=== PATIENT | female | born 1940 | race Caucasian/White ===

== ENCOUNTER → 2019-03-28 | Outpatient (CLI) | payer MEDICARE ==
--- NOTE | 2019-04-01 09:36 | MM ---
Reason for exam: screening (asymptomatic). Last mammogram was performed 9 years ago. History: Patient is postmenopausal. Family history of breast cancer in mother. Physical Findings: A clinical breast exam by your physician is recommended on an annual basis and results should be correlated with mammographic findings. MG 3D Screening Mammo W/Cad Bilateral CC and MLO view(s) were taken. XCCL view(s) were taken of the right breast. Prior study comparison: March 18, 2010, bilateral digital screening mammogram. December 31, 2007, bilateral digital screening mammogram. The breast tissue is heterogeneously dense. This may lower the sensitivity of mammography. Stable benign calcifications. There is no discrete abnormality. No significant changes when compared with prior studies. ASSESSMENT: Benign, BI-RAD 2 RECOMMENDATION: Routine screening mammogram of both breasts in 1 year.
== END | disposition home or self-care (01) ==
LOC: RADMAMWWP 09:44
PROVIDERS: ATTEND Family Medicine
DX: Z12.31 Encounter for screening mammogram for malignant neoplasm of breast (principal)
CPT/HCPCS: 77063; 77067

== ENCOUNTER → 2021-02-05 | Outpatient (CLI) | payer MEDICARE ==
--- NOTE | 2021-02-06 12:24 | ECHOF ---
Referral Reason:I34.0 Mitral valve regurgitation MEASUREMENTS -------- HEIGHT: 157.5 cm WEIGHT: 51.7 kg BP: RVIDd: 3.2 cm (< 3.3) IVSd: 0.9 cm (0.6 - 1.1) LVIDd: 3.8 cm (3.9 - 5.3) LVPWd: 1.0 cm (0.6 - 1.1) IVSs: 1.2 cm LVIDs: 2.8 cm LVPWs: 1.1 cm LAESV Index (A-L): 20.12 ml/m Ao Diam: 3.3 cm (2.0 - 3.7) MV EXCURSION: 11.236 mm (> 18.000) MV EF SLOPE: 217 mm/s (70 - 150) EPSS: 0.4 cm MV E Gilbert: 0.53 m/s MV DecT: 294 ms MV A Gilbert: 0.83 m/s MV E/A Ratio: 0.64 RAP: 5.00 mmHg RVSP: 29.66 mmHg FINDINGS -------- Sinus rhythm. This was a technically good study. LV size, wall thickness and systolic function are normal, with an EF greater than 55%. The left eda tricular size is normal. The right ventricle is normal in size. Normal LA size by volume 22+/-6 ml/m2. The right atrial size is normal. There is mild aortic valve sclerosis. There is no evidence of aortic regurgitation. Mild mitral regurgitation is present. Mild tricuspid regurgitation present. Right ventricular systolic pressure is normal at < 35 mmHg. There is no pulmonic regurgitation present. There is no pericardial effusion. CONCLUSIONS -------- 1. LV size, wall thickness and systolic function are normal, with an EF greater than 55%. 2. The left ventricular size is normal. 3. The right ventricle is normal in size. 4. Normal LA size by volume 22+/-6 ml/m2. 5. The right atrial size is normal. 6. There is mild aortic valve sclerosis. 7. Mild mitral regurgitation is present. 8. Mild tricuspid regurgitation present. 9. There is no pericardial effusion. TEACHING ASSOCIATE: Rosa Carrasco RDCS
== END | disposition home or self-care (01) ==
LOC: RADECHMAIN 15:43
PROVIDERS: ATTEND Family Medicine
DX: I08.3 Combined rheumatic disorders of mitral, aortic and tricuspid valves (principal)
CPT/HCPCS: 93306

== ENCOUNTER → 2021-02-19 | Outpatient (CLI) | payer MEDICARE ==
[~2021-02-19] MED LIST: DENOSUMAB 60 MG/ML 1 ML SYRINGE SQ ONE
[2021-02-19 13:32] VITALS: BP 156/72; PULSE 94; RESP 18; TEMP 97.9
== END ==
LOC: PROCWHC3 13:13
PROVIDERS: ATTEND Family Medicine
DX: M81.0 Age-related osteoporosis without current pathological fracture (principal); Z88.2 Allergy status to sulfonamides; Z91.040 Latex allergy status; Z88.1 Allergy status to other antibiotic agents; Z88.8 Allergy status to other drugs, medicaments and biological substances; Z91.048 Other nonmedicinal substance allergy status
CPT/HCPCS: 96372; J0897

== ENCOUNTER → 2021-08-24 | Outpatient (CLI) | payer MEDICARE ==
[~2021-08-24] MED LIST changes: +DENOSUMAB 60 MG/ML 1 ML SYRINGE SQ NR; -DENOSUMAB 60 MG/ML 1 ML SYRINGE SQ ONE
[2021-08-24 13:09] VITALS: BP 101/69; PULSE 71; RESP 16; TEMP 97.7
== END ==
LOC: PROCWHC3 12:55
PROVIDERS: ATTEND Family Medicine
DX: M81.0 Age-related osteoporosis without current pathological fracture (principal)
CPT/HCPCS: 96372; J0897

== ENCOUNTER 2022-07-25 09:59 | Day surgery (SDC) | payer MEDICARE ==
[~2022-07-25 09:59] MED LIST changes: +ALPRAZolam 0.25 MG TAB PO PRN; +ALPRAZolam 0.5 MG TAB PO PRN; +ASPIRIN 325 MG TAB PO PRN; -DENOSUMAB 60 MG/ML 1 ML SYRINGE SQ NR; +HEPARIN SODIUM,PORCINE 10,000 UNIT in SODIUM CHLORIDE 0.9% 1,000 ML IRRIGATION PRN; +HEPARIN SODIUM,PORCINE 2,500 UNIT in SODIUM CHLORIDE 0.9% 250 ML IRRIGATION PRN; +SODIUM CHLORIDE 0.9% 1,000 ML in EMPTY BAG 1 BAG IV ONE; +ZOLPIDEM 5 MG TAB PO PRN
[2022-07-25] MEDS ORDERED: SODIUM CHLORIDE 0.9% 1,000 ML IV ONE (10:12)
[2022-07-25 10:30] VITALS: RESP 16; TEMP 98.6
[2022-07-25 10:47] LABS: Basophils % (A) 0 %; Eosinophils # (A) 0.2 k/uL (0-0.7); Eosinophils % (A) 2 %; HCT 46.2 % (34.0-46.0); HGB 15.2 gm/dL (11.4-16.0); Lymphocytes # (A) 1.6 k/uL (1.0-4.8); Lymphocytes % (A) 21 %; MCH 28.7 pg (25.0-35.0); MCHC 32.9 g/dL (31.0-37.0); MCV 87.2 fL (80.0-100.0); Mean Platelet Volume 8.9; Monocytes # (A) 0.5 k/uL (0-1.0); Monocytes % (A) 7 %; Neutrophils # (A) 5.1 k/uL (1.3-7.7); Neutrophils % (A) 68 %; Platelet Count 225 k/uL (150-450); WBC 7.5 k/uL (3.8-10.6)
[2022-07-25 10:59] LABS: African American GFR (CKD) >90 (>60 ml/min/1.73 sqM); Anion Gap 6 mmol/L; Blood Urea Nitrogen 27 mg/dL (7-17); Calcium 9.4 mg/dL (8.4-10.2); Carbon Dioxide 28 mmol/L (22-30); Chloride 102 mmol/L (98-107); Glucose 110 mg/dL (74-99); Non-African American GFR(CKD) 85 (>60 ml/min/1.73 sqM); Sodium 136 mmol/L (137-145)
[2022-07-25 11:21] LABS: Potassium 4.6 mmol/L (3.5-5.1)
[2022-07-25] MEDS ORDERED: MIDAZOLAM 2 MG/2 ML VIAL IV ONE (12:22)
[2022-07-25] MEDS ORDERED: LIDOCAINE 1% INJ 10MG/ML (5 ML VIAL-PF) SQ ONE (12:22)
[2022-07-25] MEDS ORDERED: fentaNYL (PF) 50 MCG/ML 2 ML AMP IV ONE (12:22)
[2022-07-25] MEDS ORDERED: VERAPAMIL SYRINGE (5 MG/10 ML) INTRAARTER ONE (12:24)
--- NOTE | 2022-07-25 13:12 | P.PCN ---
Description of Procedure: PROCEDURES PERFORMED: Abdominal angiography with bilateral runoff INDICATION: PAD, claudication CONSENT:I have discussed the risks, benefits and alternative therapies for the above-mentioned procedure and for both sedation/analgesia as well as necessary blood product administration, if indicated, as they pertain to this patient. T he patient has indicated understanding and acceptance of the risks and procedures discussed. PROCEDURE: After the risks, benefits and alternatives of the above mentioned procedure explained in detail with the patient, informed consent was obtained. Patient was taken to the catheterization lab and prepped and draped in usual fashion. 1% lidocaine was used to anesthetize the right radial area. A 5- [place] sheath was placed in the right radial artery using modified Seldinger technique. A 5-[place]ib[place] pigtail catheter was inserted to the abdominal aorta and DSA imaging was obtained. Patient tolerated the diagnostic portion well. A TR band was placed with hemostasis achieved. The patient tolerated the procedure well. Patient was transported back to the post catheterization holding area in stable condition. Conscious Sedation: Patient was monitored under the direct supervision of vision of myself for conscious sedation using Versed and fentanyl for a total duration of 27 minutes HEMODYNAMICS: Aorta: 204/89 Pullback across left iliac 90 mmHg Pullback across right iliac 40 mmHg Abdominal aorta: The abdominal aorta has diffuse calcifcation. There is a 60% stenosis of the distal aorta past the renal arteries. There is no significant gradient with pullback across this lesion. Renal arteries heart patent. There is no significant dissection or aneurysm. Right lower extremity: Right common iliac artery: There is diffuse 30-40% stenosis. Right external iliac artery: There is 70% proximal external iliac stenosis. Right internal iliac artery: There is no significant stenosis. Right common femoral artery: There is no significant stenosis. Right profunda: There is no significant stenosis. Right SFA: There is 100% proximal SFA stenosis Right popliteal artery: There is no significant stenosis. Right tibioperoneal trunk: There is no significant stenosis. Right anterior tibial artery: There is no significant stenosis. Right porterior tibial artery: There is no significant stenosis. Right peroneal artery: There is no significant stenosis. Left lower extremity: Left common iliac artery: There is no significant stenosis. Left external iliac artery: There is 80% external iliac stenosis. Left internal iliac artery: There is no significant stenosis. Left common femoral artery: There is no significant stenosis. Left profunda: There is no significant stenosis. Left SFA: There is mild 30-40% stenosis. Left popliteal artery: There is no significant stenosis. Left tibioperoneal trunk: There is no significant stenosis. Left anterior tibial artery: There is no significant stenosis. Left porterior tibial artery: There is no significant stenosis. Left peroneal artery: There is no significant stenosis. FINAL IMPRESSION: 1. Peripheral arterial disease as described above including distal aortic 60% stenosis, right external iliac 70% stenosis, left external iliac 80% stenosis, right SFA 100% stenosis. 2. Pressure gradient of 90 mmHg pullback across the left iliac artery and 40 mmHg with pullback across the right iliac artery PLAN: 1. Aggressive risk factor modification per most recent ACC/AHA guidelines. 2. Staged intervention if having significant claudication.
--- NOTE | 2022-07-25 14:11 | IR ---
EXAMINATION TYPE: IR angio abdominal w runoff DATE OF EXAM: 07/25/2022 COMPARISON: NONE HISTORY: Fluoroscopy time. Fluoroscopy was provided to the referring clinician.
[2022-07-25 16:46] VITALS: BP 123/69; PULSE 69
== END 2022-07-25 16:42 | disposition home or self-care (01) ==
LOC: CATHCVL 09:59
PROVIDERS: ATTEND Internal Medicine
DX: I70.213 Atherosclerosis of native arteries of extremities with intermittent claudication, bilateral legs (principal); I70.0 Atherosclerosis of aorta; I25.10 Atherosclerotic heart disease of native coronary artery without angina pectoris; Z87.891 Personal history of nicotine dependence; E78.5 Hyperlipidemia, unspecified; Z79.899 Other long term (current) drug therapy; Z79.82 Long term (current) use of aspirin
CPT/HCPCS: 36245; 99152; 99153; 75625; 75716; 80048; 85025; C1769 ×3; C1894 ×2; J2250; J2001; J3010; 36200

== ENCOUNTER → 2022-09-06 | Outpatient (CLI) | payer MEDICARE ==
[2022-09-07 02:23] LABS: African American GFR (CKD) 98.2 (60.0-200.0); Anion Gap 11.9 mmol/L (10.00-18.00); Blood Urea Nitrogen 17.7 mg/dL (9.0-27.0); Non-African American GFR(CKD) 84.7 (60.0-200.0); Potassium 3.8 mmol/L (3.5-5.5)
[2022-09-07 02:26] LABS: HCT 50.4 % (37.2-46.3); HGB 15.4 g/dL (12.0-15.0); MCH 27.1 pg (27.0-32.0); MCHC 30.6 g/dL (32.0-37.0); MCV 88.6 fL (80.0-97.0); Mean Platelet Volume 11.9 fL (9.5-12.2); NRBC Per 100 WBC 0 /100 WBCS (0.0-0.0); Platelet Count 288 X 10*3/uL (140-440); RBC 5.69 X 10*6/uL (4.10-5.20); RDW 13.1 % (11.5-14.5); WBC 9.49 X 10*3/uL (4.50-10.00)
== END | disposition home or self-care (01) ==
LOC: LABPAT 12:09
PROVIDERS: ATTEND Internal Medicine
DX: Z01.812 Encounter for preprocedural laboratory examination (principal); I70.213 Atherosclerosis of native arteries of extremities with intermittent claudication, bilateral legs
CPT/HCPCS: 80051; 82565; 84520; 85027

== ENCOUNTER 2022-09-14 07:38 | Day surgery (SDC) | payer MEDICARE ==
[~2022-09-14 07:38] MED LIST changes: -ALPRAZolam 0.5 MG TAB PO PRN; -ASPIRIN 325 MG TAB PO PRN; -HEPARIN SODIUM,PORCINE 10,000 UNIT in SODIUM CHLORIDE 0.9% 1,000 ML IRRIGATION PRN; -HEPARIN SODIUM,PORCINE 2,500 UNIT in SODIUM CHLORIDE 0.9% 250 ML IRRIGATION PRN; -ZOLPIDEM 5 MG TAB PO PRN
[2022-09-14] MEDS ORDERED: fentaNYL (PF) 50 MCG/ML 2 ML AMP ONE (09:37)
[2022-09-14] MEDS ORDERED: HEPARIN SODIUM 1,000 UN/ML (10ML VL) ONE (09:38)
[2022-09-14] MEDS ORDERED: MIDAZOLAM 2 MG/2 ML VIAL IV ONE (09:47)
[2022-09-14] MEDS ORDERED: LIDOCAINE 1% INJ 10MG/ML (20 ML MDV) SQ ONE (09:47)
[2022-09-14] MEDS ORDERED: fentaNYL (PF) 50 MCG/ML 2 ML AMP IV ONE (09:47)
[2022-09-14] MEDS ORDERED: HEPARIN SODIUM 1,000 UN/ML (10ML VL) IV ONE (09:55)
[2022-09-14] MEDS ORDERED: IOPAMIDOL-370 100ML BTL INJ ONE (11:04)
[2022-09-14] MEDS ORDERED: IOPAMIDOL-250 100ML BTL INTRAARTER ONE (11:09)
--- NOTE | 2022-09-14 11:55 | IR ---
EXAMINATION TYPE: IR stent intravas non coronary DATE OF EXAM: 09/14/2022 COMPARISON: NONE HISTORY: Fluoroscopy time. Fluoroscopy was provided to the referring clinician.
[2022-09-14] MEDS ORDERED: ALBUTEROL NEBULIZED 2.5 MG/3 ML INHALATION PRN (11:58)
[2022-09-14] MEDS ORDERED: NALOXONE 0.4 MG/ML 1 ML VIAL IVP PRN (11:59)
[2022-09-14] MEDS ORDERED: ATORVASTATIN 40 MG TAB PO SCH (21:00)
[2022-09-15 00:43] VITALS: RESP 16
[2022-09-15 06:45] LABS: Basophils % (A) 0 %; Eosinophils # (A) 0.3 k/uL (0-0.7); Eosinophils % (A) 3 %; HCT 39.5 % (34.0-46.0); Hypochromasia Slight; Lymphocytes # (A) 1.5 k/uL (1.0-4.8); Lymphocytes % (A) 15 %; MCH 26.6 pg (25.0-35.0); MCV 85.9 fL (80.0-100.0); Mean Platelet Volume 8.8; Monocytes # (A) 0.8 k/uL (0-1.0); Monocytes % (A) 8 %; Neutrophils # (A) 7.1 k/uL (1.3-7.7); Neutrophils % (A) 71 %; Platelet Count 258 k/uL (150-450); RDW 12.8 % (11.5-15.5)
[2022-09-15 06:49] LABS: HGB 12.2 gm/dL (11.4-16.0)
[2022-09-15 06:53] LABS: African American GFR (CKD) >90 (>60 ml/min/1.73 sqM); Anion Gap 7 mmol/L; Blood Urea Nitrogen 20 mg/dL (7-17); Calcium 8.2 mg/dL (8.4-10.2); Carbon Dioxide 26 mmol/L (22-30); Chloride 102 mmol/L (98-107); Glucose 113 mg/dL (74-99); Non-African American GFR(CKD) 88 (>60 ml/min/1.73 sqM); Potassium 3.9 mmol/L (3.5-5.1); Sodium 135 mmol/L (137-145)
[2022-09-15 07:58] VITALS: TEMP 97.8
[2022-09-15] MEDS ORDERED: SYMBICORT 80-4.5 MCG INHALER INHALATION SCH (08:00)
[2022-09-15] MEDS ORDERED: ISOSORBIDE MONONITRATE ER 30 MG TAB.ER.24H PO SCH (09:00)
[2022-09-15] MEDS ORDERED: ASPIRIN 81 MG PO SCH (09:00)
[2022-09-15] MEDS ORDERED: CLOPIDOGREL 75 MG TAB PO SCH (09:00)
[2022-09-15] MEDS: IPRATROPIUM 0.5 MG/2.5 ML NEBU INHALATION SCH ×2 (09:42→12:14)
[2022-09-15 11:49] VITALS: PULSE 75
[2022-09-15] MEDS ORDERED: MAGNESIUM HYDROXIDE 2,400 MG/10 ML CUP PO PRN (11:57)
[2022-09-15] MEDS ORDERED: bisacodyL 10 MG SUPP RECTAL SCH (12:00)
[2022-09-15 13:17] VITALS: BMI 20.7
[2022-09-15 15:50] VITALS: BP 161/92
--- NOTE | 2022-09-15 22:07 | P.PCN ---
Description of Procedure: PROCEDURES PERFORMED: FAC ENGINEER and FREDO of proximal to distal right SFA with overlapping 6.0 x 140, 6.0 x 100, 6.0 x 80, 6.0 x 40mm Zilver FREDO, IVUS SFA INDICATION: Lifestyle limiting claudication, known PAD CONSENT:I have discussed the risks, benefits and alternative therapies for the above-mentioned procedure and for both sedation/analgesia as well as necessary blood product administration, if indicated, as they pertain to this patient. The patient has indicated understanding and acceptance of the risks and procedures discussed. PROCEDURE: After the risks, benefits and alternatives of the above mentioned procedure explained in detail with the patient, informed consent was obtained. Patient was taken to the catheterization lab and prepped and draped in usual fashion. 1% lidocaine was used to anesthetize the left femoral area. A 6- [place] sheath was placed in the left femoral artery using modified Seldinger technique. A 5-[place]aguayan rim catheter with a 0.035 stiff Glidewire was advanced into the contralateral SFA. Over the guidewire, a 6-[place] destination sheath was placed. Diagnostic imagings were performed. Attempts were made at keeping the wire intraluminal however unsuccessful crossing. Therefore a small J was made with the Glidewire and advanced with a glide catheter and noted to be in dissection. Multiple attempts were made at reentry however required reentry mildly more distally at the proximal popliteal artery. A microcatheter was advanced and verified it was intraluminal. Therefore balloon angioplasty was performed with a 4.0 balloon. Next intravascular ultrasound was performed which showed dissection flap to the proximal popliteal area. Therefore decision was made to perform stenting. Overlapping 6.0 x 140 mm, 6.0 x 100 mm, 6.0 x 80 mm and 6.0 x 40 mm Zilver FREDO were placed. The stents were postdilated with a 6.0 balloon. Pre-intervention there is 100% stenosis with no antegrade flow and post intervention there was less than 10% stenosis with uninhibited antegrade flow. The sheath was exchanged for a short 6Fr sheath and left in place for manual pull. The patient tolerated the procedure well. Patient was transported back to the post catheterization holding area in stable condition. Conscious Sedation: Patient was monitored under the direct supervision of vision of myself for conscious sedation using Versed and fentanyl for a total duration of 79 minutes HEMODYNAMICS: Ao: 133/71 Right lower extremity: Right common iliac artery: Not imaged Right external iliac artery: Not imaged Right internal iliac artery: Not imaged Right common femoral artery: There is no significant stenosis. Right profunda: There is no significant stenosis. Right SFA: There is long 100% right SFA stenosis. Right popliteal artery: There is no significant stenosis. Right tibioperoneal trunk: There is no significant stenosis. Right anterior tibial artery: There is no significant stenosis. Right posterior tibial artery: There is no significant stenosis. Right peroneal artery: There is no significant stenosis. FINAL IMPRESSION: 1. Peripheral arterial disease as described above including 100% right SFA stenosis. 2. S/p FAC ENGINEER and FREDO of proximal to distal right SFA with overlapping 6.0 x 140, 6.0 x 100, 6.0 x 80, 6.0 x 40mm Zilver FREDO PLAN: 1. Aggressive risk factor modification per most recent ACC/AHA guidelines. 2. Continue aspirin and Plavix for 6 months.
--- NOTE | 2022-09-15 22:10 | P.DS ---
Providers Attending physician: Willy Hatch DO Primary care physician: Viral Byrd [facility] Course: Patient has a history of PAD with prior diagnostic imaging showing significant right SFA 100% occluded as well as concern of inflow disease with pressure gradient across bilateral common iliac arteries. Patient underwent right SFA angioplasty and stenting 09/14 from a left femoral approach. Patient did well however has had continued right knee pain similar to prior to angioplasty. She was monitored overnight and admitted to some continued constipation which she has been dealing with at home. She appeared stable for discharge home 09/15 on aspirin and Plavix for the next 6 months. Bilateral iliac disease may be considered if continues with claudication. Plan - Discharge Summary Discharge Rx Participant: No New Discharge Prescriptions: No Action Atorvastatin [Lipitor] 40 mg PO HS Albuterol Sulfate [Proair Digihaler] 1 puff INHALATION Q6H PRN PRN Reason: Wheezing Isosorbide Mononitrate ER [Imdur] 30 mg PO DAILY Aspirin 81 mg PO DAILY Fluticasone/Umeclidin/Vilanter [Trelegy Ellipta 100-62.5-25] 1 puff INHALATION DAILY Clopidogrel [Plavix] 75 mg PO DAILY Discharge Medication List Atorvastatin [Lipitor] 40 mg PO HS 07/20/22 [History] Fluticasone/Umeclidin/Vilanter [Trelegy Ellipta 100-62.5-25] 1 puff INHALATION DAILY 07/20/22 [History] Albuterol Sulfate [Proair Digihaler] 1 puff INHALATION Q6H PRN 09/13/22 [History] Aspirin 81 mg PO DAILY 09/13/22 [History] Clopidogrel [Plavix] 75 mg PO DAILY 09/13/22 [History] Isosorbide Mononitrate ER [Imdur] 30 mg PO DAILY 09/13/22 [History] Follow up Appointment(s)/Referral(s): Willy Hatch DO [STAFF PHYSICIAN] - 09/28/22 9:45 am () Patient Instructions/Handouts: Peripheral Vascular Disease (ED), Peripheral Artery Disease (ED), Moderate Sedation (DC), Peripheral Vascular Stent Placement (DC) Activity/Diet/Wound Care/Special Instructions: *NO LIFTING, PUSHING, OR PULLING ANYTHING OVER 5 POUNDS FOR 5 DAYS *NO DRIVING FOR 3 DAYS *YOU CAN SHOWER TOMORROW BUT DO NOT SUBMERSE YOUR PUNCTURE SITE IN WATER FOR A FEW DAYS TO PREVENT INFECTION - SO NO TUB BATHS, POOLS, HOT TUBS, DISHES...ETC *ANY SIGNS OF BLEEDING (HARDNESS, SWELLING, OR EXCESSIVE BRUISING) HOLD DIRECT PRESSURE ON YOUR PUNCTURE SITE AND COME TO THE NEAREST EMERGENCY ROOM TO GET YOUR PUNCTURE SITE LOOKED AT - DO NOT DRIVE YOURSELF! EITHER CALL EMS OR HAVE SOMEONE DRIVE YOU! Discharge Disposition: HOME SELF-CARE
== END 2022-09-15 16:04 | disposition home or self-care (01) ==
LOC: CATHCVL 07:38 → 3SCARD 11:06 → CATHCVL 09-15 16:04
PROVIDERS: ATTEND Internal Medicine
DX: I70.211 Atherosclerosis of native arteries of extremities with intermittent claudication, right leg (principal); I10 Essential (primary) hypertension; I25.10 Atherosclerotic heart disease of native coronary artery without angina pectoris; Z79.82 Long term (current) use of aspirin; Z79.02 Long term (current) use of antithrombotics/antiplatelets; Z87.891 Personal history of nicotine dependence; Z79.899 Other long term (current) drug therapy
CPT/HCPCS: 37226; 37252; 80048; 85025; 99152; 99153 ×4; C1769 ×6; C1894 ×2; C1725; C1887; C1874 ×4; J2250; J2001; J3010; J1644; Q9966; Q9967

== ENCOUNTER → 2022-10-13 | Outpatient (CLI) | payer MEDICARE ==
--- NOTE | 2022-10-13 13:31 | XR ---
EXAMINATION TYPE: XR Hip Complete RT DATE OF EXAM: 10/13/2022 COMPARISON: NONE HISTORY: Pain TECHNIQUE: 2 views submitted FINDINGS: There is no evidence of erosive change or acute fracture. Diffuse osteopenia. There is vascular stent is noted. Vascular calcification seen. Hypertrophic changes involving the greater trochanter. IMPRESSION: 1. No evidence of acute fracture or dislocation. Diffuse osteopenia.
== END | disposition home or self-care (01) ==
LOC: RADXRMAIN 13:05
PROVIDERS: ATTEND Nurse Practitioner
DX: M25.551 Pain in right hip (principal); M85.88 Other specified disorders of bone density and structure, other site
CPT/HCPCS: 73502

== ENCOUNTER 2022-11-07 22:19 | Inpatient (IN) | payer MEDICARE ==
[2022-11-07 23:01] LABS: Basophils % (A) 0 %; Eosinophils # (A) 0.2 k/uL (0-0.7); Eosinophils % (A) 2 %; HCT 42.1 % (34.0-46.0); HGB 13.4 gm/dL (11.4-16.0); Lymphocytes # (A) 1.7 k/uL (1.0-4.8); Lymphocytes % (A) 17 %; MCH 26.5 pg (25.0-35.0); MCHC 31.8 g/dL (31.0-37.0); MCV 83.1 fL (80.0-100.0); Mean Platelet Volume 8.8; Monocytes # (A) 0.8 k/uL (0-1.0); Monocytes % (A) 8 %; Neutrophils # (A) 7.3 k/uL (1.3-7.7); Neutrophils % (A) 72 %; Platelet Count 278 k/uL (150-450); RBC 5.07 m/uL (3.80-5.40); RDW 14.2 % (11.5-15.5); WBC 10.2 k/uL (3.8-10.6)
[2022-11-07 23:16] LABS: ALT 25 U/L (4-34); AST 24 U/L (14-36); African American GFR (CKD) >90 (>60 ml/min/1.73 sqM); Albumin 3.6 g/dL (3.5-5.0); Alkaline Phosphatase 153 U/L (38-126); Anion Gap 9 mmol/L; Blood Urea Nitrogen 38 mg/dL (7-17); Calcium 9.3 mg/dL (8.4-10.2); Carbon Dioxide 25 mmol/L (22-30); Chloride 103 mmol/L (98-107); Glucose 150 mg/dL (74-99); Non-African American GFR(CKD) 78 (>60 ml/min/1.73 sqM); Potassium 4.1 mmol/L (3.5-5.1); Sodium 137 mmol/L (137-145); Total Bilirubin 0.3 mg/dL (0.2-1.3); Total Protein 6.4 g/dL (6.3-8.2)
[2022-11-07 23:30] LABS: INR 0.9 (<1.2); Partial Thromboplastin Time 22.5 sec (22.0-30.0); Prothrombin Time 9.9 sec (9.0-12.0)
--- NOTE | 2022-11-08 01:45 | ED ---
General Adult HPI - General Chief complaint: Chest Pain Stated complaint: Chest Pain Time Seen by Provider: 11/08/22 01:28 Source: patient Mode of arrival: wheelchair - History of Present Illness Initial comments: This patient is an 82-year-old woman who presents to have evaluation for a number of symptoms. The most bothersome symptom is that she is having shortness of breath. She states this is been going on for around a week and that she has been seen in the clinic. She was treated with steroid and inhaled medication but has not had improvement yet. Patient also having some back pains that are been going on for over a month. She states that associated with the shortness of breath she is having cough and the cough sets off the back pain which is sharp and severe. Onset/Timin -: month(s) Location: back Radiation: non-radiation Quality: sharp Consistency: intermittent Improves with: none Worsens with: movement, other (Cough) Associated Symptoms: cough, shortness of breath Treatments Prior to Arrival: other (Steroid, inhaled medications) - Related Data Home Medications Medication Instructions Recorded Confirmed Atorvastatin [Lipitor] 40 mg PO HS 07/20/22 11/08/22 Fluticasone/Umeclidin/Vilanter 1 puff INHALATION RT-DAILY 07/20/22 11/08/22 [Trelegy Ellipta 100-62.5-25] Clopidogrel [Plavix] 75 mg PO DAILY 09/13/22 11/08/22 Isosorbide Mononitrate ER [Imdur] 30 mg PO DAILY 09/13/22 11/08/22 Albuterol Sulfate [Albuterol 2 puff PO RT-Q6H PRN 11/08/22 11/08/22 Sulfate Hfa] Previous Rx's Medication Instructions Recorded Aspirin 81 mg PO DAILY #30 tab 11/12/22 HYDROcodone/APAP 7.5-325MG [[place] 1 tab PO Q6HR PRN 3 Days #12 tab 11/12/22 7.5-325] Ipratropium-Albuterol Nebulize 3 ml INHALATION QID #100 each 11/12/22 [Duoneb 0.5 mg-3 mg/3 ml Soln] Lactulose 20 gm PO TID PRN #360 ml 11/12/22 Magnesium Hydroxide [Milk of 2,400 mg PO BID PRN ml 11/12/22 Magnesia] methylPREDNISolone Dose Pack 4 mg PO DIRECTED #21 tab 11/12/22 [Medrol Dose Pack] Allergies Allergy/AdvReac Type Severity Reaction Status Date / Time No Known Allergies Allergy Verified 11/08/22 10:57 Review of Systems ROS Statement: Those systems with pertinent positive or pertinent negative responses have been documented in the HPI. ROS Other: All systems not noted in ROS Statement are negative. Constitutional: Reports: weakness. Denies: fever, chills Respiratory: Reports: cough, dyspnea, wheezes. Denies: hemoptysis Cardiovascular: Denies: chest pain, palpitations, orthopnea, edema, syncope Gastrointestinal: Denies: abdominal pain, vomiting, diarrhea, melena, hematochezia Genitourinary: Denies: dysuria, hematuria Musculoskeletal: Reports: back pain Skin: Denies: rash Neurological: Denies: headache, weakness, numbness Past Medical History Past Medical History: Chest Pain / Angina, COPD, Vascular Disorder Additional Past Medical History / Comment(s): pre diabetic, lower back pain,constipation, History of Any Multi-Drug Resistant Organisms: None Reported Past Surgical History: Heart Catheterization With Stent, Hysterectomy Additional Past Surgical History / Comment(s): neck surgery, cataract surgery, colonoscopy Past Anesthesia/Blood Transfusion Reactions: No Reported Reaction Date of Last Stent Placement:: 09/14/22 Past Psychological History: No Psychological Hx Reported Smoking Status: Former smoker Past Alcohol Use History: None Reported Past Drug Use History: None Reported General Exam General appearance: alert, in no apparent distress Head exam: Present: atraumatic, normocephalic Eye exam: Present: normal appearance. Absent: scleral icterus, conjunctival injection ENT exam: Present: normal oropharynx Neck exam: Present: normal inspection Respiratory exam: Present: normal lung sounds bilaterally. Absent: respiratory distress, wheezes, rales, rhonchi, stridor Cardiovascular Exam: Present: regular rate, normal rhythm, normal heart sounds. Absent: systolic murmur, diastolic murmur, rubs, gallop GI/Abdominal exam: Present: soft. Absent: distended, tenderness, guarding, rebound, rigid, mass Extremities exam: Present: normal inspection, normal capillary refill. Absent: pedal edema, calf tenderness Back exam: Present: normal inspection, paraspinal tenderness. Absent: CVA tenderness (R), CVA tenderness (L) Neurological exam: Present: alert Skin exam: Present: warm, dry, intact, normal color. Absent: rash Course Vital Signs 11/07/22 11/08/22 11/08/22 22:30 02:31 03:18 Temperature 98.2 F Pulse Rate 70 75 82 Respiratory 18 20 Rate Blood Pressure 174/82 159/84 O2 Sat by Pulse 98 95 Oximetry 11/08/22 11/08/22 11/08/22 04:13 04:26 05:58 Temperature Pulse Rate 76 76 72 Respiratory 18 Rate Blood Pressure 110/64 O2 Sat by Pulse 97 Oximetry 11/08/22 11/08/22 11/08/22 07:15 09:00 10:00 Temperature Pulse Rate 78 70 72 Respiratory 18 18 18 Rate Blood Pressure 124/62 128/90 110/67 O2 Sat by Pulse 99 98 98 Oximetry 11/08/22 11/08/22 11/08/22 11:00 12:00 13:00 Temperature Pulse Rate 74 76 72 Respiratory 18 16 18 Rate Blood Pressure 126/86 138/84 127/91 O2 Sat by Pulse 99 99 99 Oximetry 11/08/22 11/08/22 11/08/22 13:14 13:30 13:35 Temperature Pulse Rate 87 Respiratory 78 H 80 H Rate Blood Pressure 127/91 O2 Sat by Pulse 96 95 Oximetry 11/08/22 11/08/22 11/08/22 13:42 14:00 14:30 Temperature Pulse Rate 88 Respiratory 82 H 80 H Rate Blood Pressure 126/90 138/86 O2 Sat by Pulse 91 L 89 L Oximetry 11/08/22 11/08/22 11/08/22 15:00 15:30 16:00 Temperature Pulse Rate 74 Respiratory 78 H 84 H 18 Rate Blood Pressure 136/80 129/83 129/83 O2 Sat by Pulse 91 L 93 L 92 L Oximetry 11/08/22 11/08/22 11/08/22 16:14 16:24 16:30 Temperature Pulse Rate 64 76 74 Respiratory 18 Rate Blood Pressure 122/76 O2 Sat by Pulse 95 Oximetry 11/08/22 11/08/22 11/08/22 17:00 17:30 18:00 Temperature Pulse Rate 76 75 72 Respiratory 18 18 18 Rate Blood Pressure 129/83 150/99 154/78 O2 Sat by Pulse 93 L 95 94 L Oximetry 11/08/22 11/08/22 11/08/22 18:30 20:55 22:24 Temperature Pulse Rate 76 68 106 H Respiratory 16 18 Rate Blood Pressure 131/87 150/66 O2 Sat by Pulse 92 L 93 L Oximetry 11/08/22 11/09/22 11/09/22 23:20 01:16 07:00 Temperature Pulse Rate 93 88 78 Respiratory 18 16 18 Rate Blood Pressure 165/81 139/66 157/69 O2 Sat by Pulse 92 L 92 L 92 L Oximetry 11/09/22 11/09/22 11/09/22 07:19 09:12 09:22 Temperature Pulse Rate 79 78 77 Respiratory 16 18 18 Rate Blood Pressure O2 Sat by Pulse 92 L 98 Oximetry 11/09/22 11/09/22 11/09/22 10:14 11:29 13:34 Temperature Pulse Rate 79 77 78 Respiratory 22 16 18 Rate Blood Pressure 152/82 173/77 O2 Sat by Pulse 97 98 Oximetry 11/09/22 11/09/22 11/09/22 13:45 16:18 16:26 Temperature Pulse Rate 80 78 82 Respiratory 18 18 18 Rate Blood Pressure 145/89 O2 Sat by Pulse 97 Oximetry 11/09/22 16:36 Temperature Pulse Rate 84 Respiratory 18 Rate Blood Pressure O2 Sat by Pulse Oximetry EKG Findings - EKG Results: EKG: interpreted by ERMD, sinus rhythm (Rate 64 bpm), normal axis, normal QRS - Blocks, [place], Hypertrophy, ST Abn: Repolarization changes or abnormalities: nonspecific abnormality, ST segment, and/or T wave Medical Decision Making - Medical Decision Making The patient had chest x-ray which I interpreted as being negative for acute infiltrate, pneumothorax, or bony injury. Was pt. sent in by a medical professional or institution (, PA, [facility] [facility], urgent care, hospital, or skilled nursing...) When possible be specific @ -[No] Did you speak to anyone other than the patient for history (EMS, parent, family, police, friend...)? What history was obtained from this source @ -[No] Did you review nursing and triage notes (agree or disagree)? Why? @ -[I reviewed and agree with nursing and triage notes] Were old charts reviewed (outside hosp., previous admission, EMS record, old EKG, old radiological studies, urgent care reports/EKG's, skilled nursing records)? Report findings @ -[No old charts were reviewed] Differential Diagnosis (chest pain, altered mental status, abdominal pain women, abdominal pain men, vaginal bleeding, weakness, fever, dyspnea, syncope, headache, dizziness, GI bleed, back pain, seizure, CVA, palpatations, mental health, musculoskeletal)? @ -[Differential Dyspnea: Coronary syndrome, arrhythmia, tamponade, asthma, COPD, pulmonary embolism, pneumonia, pneumothorax, pulmonary effusion, anaphylaxis, diabetic ketoacidosis, flailed chest, pulmonary contusion, diaphragmatic rupture, anemia, neuromuscular, this is not meant to be an all-inclusive list. EKG interpreted by me (3pts min.). @ -[As above] X-rays interpreted by me (1pt min.). @ -[As above CT interpreted by me (1pt min.). @ -[None done] U/S interpreted by me (1pt. min.). @ -[None done] What testing was considered but not performed or refused? (CT, X-rays, U/S, labs)? Why? @ -[None] What meds were considered but not given or refused? Why? @ -[None] Did you discuss the management of the patient with other professionals (professionals i.e. , PA, [facility] [facility], lab, RT, psych nurse, social worker assistant, senior business process analyst, teacher, wildlife officer, case operator)? Give summary @ -[Case discussed with admitting physician Was smoking cessation discussed for >3mins.? @ -[No] Was critical care preformed (if so, how long)? @ -[No] Were there social determinants of health that impacted care today? How? (Homelessness, low income, unemployed, alcoholism, drug addiction, transportation, low edu. Level, literacy, decrease access to med. care, long-term, rehab)? @ -[No] Was there de-escalation of care discussed even if they declined (Discuss DNR or withdrawal of care, Hospice)? DNR status @ -[No] What co-morbidities impacted this encounter? (DM, HTN, Smoking, COPD, CAD, Cancer, CVA, ARF, Chemo, Hep., AIDS, mental health diagnosis, sleep apnea, morbid obesity)? @ -[None] Was patient admitted / discharged? Hospital course, mention meds given and route, prescriptions, significant lab abnormalities, going to OR and other pertinent info. @ -[The patient received inhaled medications but continues to have significant symptoms. We'll admit to continue inhaled medications and steroids as well as have pulmonology consultation. Undiagnosed new problem with uncertain prognosis? @ -[No] Drug Therapy requiring intensive monitoring for toxicity (Heparin, Nitro, Insulin, Cardizem)? @ -[No] Were any procedures done? @ -[No] Diagnosis/symptom? @ -[Acute exacerbation of COPD Acute, or Chronic, or Acute on Chronic? @ -[default] Uncomplicated (without systemic symptoms) or Complicated (systemic symptoms)? @ -[Uncomplicated Side effects of treatment? @ -[No] Exacerbation, Progression, or Severe Exacerbation? @ -[Moderate COPD exacerbation Poses a threat to life or bodily function? How? (Chest pain, [place], [place], pneumonia, PE, COPD, DKA, ARF, appy, cholecystitis, CVA, Diverticulitis, Homicidal, Suicidal, threat to staff... and all critical care pts) @ -[Yes untreated COPD may progress to respiratory failure and - Lab Data Result diagrams: 11/11/22 07:16 11/11/22 07:16 Lab Results 11/07/22 11/07/22 11/07/22 Range/Units 20:50 20:50 20:50 WBC 10.2 (3.8-10.6) k/uL RBC 5.07 (3.80-5.40) m/uL Hgb 13.4 (11.4-16.0) gm/dL Hct 42.1 (34.0-46.0) % MCV 83.1 (80.0-100.0) fL MCH 26.5 (25.0-35.0) pg MCHC 31.8 (31.0-37.0) g/dL RDW 14.2 (11.5-15.5) % Plt Count 278 (150-450) k/uL MPV 8.8 Neutrophils % 72 % Lymphocytes % 17 % Monocytes % 8 % Eosinophils % 2 % Basophils % 0 % Neutrophils # 7.3 (1.3-7.7) k/uL Lymphocytes # 1.7 (1.0-4.8) k/uL Monocytes # 0.8 (0-1.0) k/uL Eosinophils # 0.2 (0-0.7) k/uL Basophils # 0.0 (0-0.2) k/uL PT 9.9 (9.0-12.0) sec INR 0.9 (<1.2) APTT 22.5 (22.0-30.0) sec Sodium 137 (137-145) mmol/L Potassium 4.1 (3.5-5.1) mmol/L Chloride 103 (98-107) mmol/L Carbon Dioxide 25 (22-30) mmol/L Anion Gap 9 mmol/L BUN 38 H (7-17) mg/dL Creatinine 0.72 (0.52-1.04) mg/dL Est GFR (CKD-EPI)AfAm >90 (>60 ml/min/1.73 sqM) Est GFR (CKD-EPI)NonAf 78 (>60 ml/min/1.73 sqM) Glucose 150 H (74-99) mg/dL Calcium 9.3 (8.4-10.2) mg/dL Magnesium (1.6-2.3) mg/dL Total Bilirubin 0.3 (0.2-1.3) mg/dL AST 24 (14-36) U/L ALT 25 (4-34) U/L Alkaline Phosphatase 153 H (38-126) U/L Troponin I (0.000-0.034) ng/mL Total Protein 6.4 (6.3-8.2) g/dL Albumin 3.6 (3.5-5.0) g/dL Influenza Type A (PCR) (Not Detectd) Influenza Type B (PCR) (Not Detectd) RSV (PCR) (Not Detectd) SARS-CoV-2 (PCR) (Not Detectd) 11/07/22 11/08/22 11/08/22 Range/Units 20:50 01:36 02:05 WBC (3.8-10.6) k/uL RBC (3.80-5.40) m/uL Hgb (11.4-16.0) gm/dL Hct (34.0-46.0) % MCV (80.0-100.0) fL MCH (25.0-35.0) pg MCHC (31.0-37.0) g/dL RDW (11.5-15.5) % Plt Count (150-450) k/uL MPV Neutrophils % % Lymphocytes % % Monocytes % % Eosinophils % % Basophils % % Neutrophils # (1.3-7.7) k/uL Lymphocytes # (1.0-4.8) k/uL Monocytes # (0-1.0) k/uL Eosinophils # (0-0.7) k/uL Basophils # (0-0.2) k/uL PT (9.0-12.0) sec INR (<1.2) APTT (22.0-30.0) sec Sodium (137-145) mmol/L Potassium (3.5-5.1) mmol/L Chloride (98-107) mmol/L Carbon Dioxide (22-30) mmol/L Anion Gap mmol/L BUN (7-17) mg/dL Creatinine (0.52-1.04) mg/dL Est GFR (CKD-EPI)AfAm (>60 ml/min/1.73 sqM) Est GFR (CKD-EPI)NonAf (>60 ml/min/1.73 sqM) Glucose (74-99) mg/dL Calcium (8.4-10.2) mg/dL Magnesium 2.0 (1.6-2.3) mg/dL Total Bilirubin (0.2-1.3) mg/dL AST (14-36) U/L ALT (4-34) U/L Alkaline Phosphatase (38-126) U/L Troponin I <0.012 (0.000-0.034) ng/mL Total Protein (6.3-8.2) g/dL Albumin (3.5-5.0) g/dL Influenza Type A (PCR) Not Detected (Not Detectd) Influenza Type B (PCR) Not Detected (Not Detectd) RSV (PCR) Not Detected (Not Detectd) SARS-CoV-2 (PCR) Not Detected (Not Detectd) Disposition Clinical Impression: COPD exacerbation, Back pain Disposition: HOME SELF-CARE Condition: Fair Is patient prescribed a controlled substance at d/c from ED?: No
[2022-11-08] MEDS ORDERED: IPRATROPIUM-ALBUTEROL 3 ML NEB INHALATION STA (01:54)
[2022-11-08] MEDS ORDERED: ALBUTEROL NEBULIZED 2.5 MG/3 ML INHALATION STA ×2 (03:10→04:33)
--- NOTE | 2022-11-08 03:18 | XR ---
EXAM: XR Chest, 2 Views CLINICAL HISTORY: ITS.REASON XR Reason: Chest Pain TECHNIQUE: Frontal and lateral views of the chest. COMPARISON: 08/03/2022 FINDINGS: Lungs: Vascular congestion. Pleural space: Unremarkable. No pneumothorax. No pleural effusions. Heart: Unremarkable. No cardiomegaly. Mediastinum: Unremarkable. Bones/joints: No acute osseous abnormalities. IMPRESSION: Vascular congestion.
[2022-11-08] MEDS ORDERED: MORPHINE SULFATE 4 MG/ML SYRINGE IV STA (03:20)
[2022-11-08] MEDS ORDERED: predniSONE 50 MG TAB PO STA (04:34)
[2022-11-08] MEDS ORDERED: ACETAMINOPHEN TAB 325 MG TAB PO PRN (04:45)
[2022-11-08] MEDS ORDERED: IPRATROPIUM-ALBUTEROL 3 ML NEB INHALATION PRN (04:45)
[2022-11-08] MEDS ORDERED: NALOXONE 0.4 MG/ML 1 ML VIAL IVP PRN (04:45)
[2022-11-08] MEDS: HYDROcodone/APAP 5-325MG 1 EACH TAB PO PRN (08:33)
[2022-11-08] MEDS ORDERED: predniSONE 20 MG TAB PO SCH (09:00)
--- NOTE | 2022-11-08 11:38 | P.CNPUL ---
History of Present Illness Consult date: 11/08/22 Requesting physician: Mor Yoder Reason for consult: COPD Chief complaint: Back pain History of present illness: This is a pleasant 82-year-old female patient with a known history of chronic obstructive pulmonary disease, former smoker, peripheral vascular disease, coronary artery disease with previous stent placement who presented here to the emergency room early this morning with complaints of back pain. Still having issues with shortness of breath cough and congestion. When she coughs her pain is much worse. Chest x-ray reveals some vascular congestion. White count 10.2. Hemoglobin 13.4. Sodium 137. Potassium 4.1. Bicarb 25. BUN 38. Creatinine 0.72. Glucose 150. Troponin negative times one. ProBNP 405. Influenza screen negative. COVID-19 screen negative. RSV screen negative. Pro-calcitonin is pending. She's been initiated and DuoNeb inhalations, Symbicort, prednisone. He is seen today in the emergency department. Sitting up in a stretcher. Awake and alert in no acute distress. She is having some ongoing issues with her back even upon simple movement. He is maintaining good O2 saturations in the mid to upper 90s on room air. Afebrile. Hemodynamically stable. Review of Systems REVIEW OF SYSTEMS: CONSTITUTIONAL: Denies any recent significant weight loss or weight gain. EYES: Denies change in vision. EARS, NOSE, MOUTH, THROAT: Denies headaches, denies sore throat. CARDIOVASCULAR: Denies chest pain, palpitations or syncopal episodes. RESPIRATORY: Positive for shortness of breath, cough, congestion no hemoptysis. GASTROINTESTINAL: Denies change in appetite, denies abdominal pain GENITOURINARY: Denies hematuria, denies infections. MUSKULOSKELETAL: Positive for back pain. INTEGUMENTARY: Denies rash, denies eczema. NEUROLOGICAL: Denies recent memory loss, no recent seizure activity. PSYCHIATRIC: Denies anxiety, denies depression. HEMATOLOGIC/LYMPHATIC: Denies anemia, denies enlarged lymph nodes. Past Medical History Past Medical History: Chest Pain / Angina, COPD, Vascular Disorder Additional Past Medical History / Comment(s): pre diabetic, lower back pain,constipation, History of Any Multi-Drug Resistant Organisms: None Reported Past Surgical History: Heart Catheterization With Stent, Hysterectomy Additional Past Surgical History / Comment(s): neck surgery, cataract surgery, colonoscopy Past Anesthesia/Blood Transfusion Reactions: No Reported Reaction Date of Last Stent Placement:: 09/14/22 Past Psychological History: No Psychological Hx Reported Smoking Status: Former smoker Past Alcohol Use History: None Reported Past Drug Use History: None Reported Medications and Allergies Home Medications Medication Instructions Recorded Confirmed Type Atorvastatin [Lipitor] 40 mg PO HS 07/20/22 11/08/22 History Fluticasone/Umeclidin/Vilanter 1 puff INHALATION RT-DAILY 07/20/22 11/08/22 History [Trelegy Ellipta 100-62.5-25] Clopidogrel [Plavix] 75 mg PO DAILY 09/13/22 11/08/22 History Isosorbide Mononitrate ER [Imdur] 30 mg PO DAILY 09/13/22 11/08/22 History Albuterol Sulfate [Albuterol 2 puff PO RT-Q6H PRN 11/08/22 11/08/22 History Sulfate Hfa] Allergies Allergy/AdvReac Type Severity Reaction Status Date / Time No Known Allergies Allergy Verified 11/08/22 10:57 Physical Exam Vitals: Vital Signs Temp Pulse Resp BP Pulse Ox 11/08/22 07:15 78 18 124/62 99 11/08/22 05:58 72 18 110/64 97 11/08/22 04:26 76 11/08/22 04:13 76 11/08/22 03:18 82 20 159/84 95 11/08/22 02:31 75 11/07/22 22:30 98.2 F 70 18 174/82 98 Intake and Output 11/07/22 11/08/22 11/08/22 22:59 06:59 14:59 Other: Weight 49.895 kg GENERAL EXAM: Alert, pleasant 82-year-old female, on room air, fairly comfortable in no apparent distress. HEAD: Normocephalic. EYES: Normal reaction of pupils, equal size. NOSE: Clear with pink turbinates. THROAT: No erythema or exudates. NECK: No masses, no JVD. CHEST: No chest wall deformity. LUNGS: Equal air entry with end expiratory wheeze, diminished. CVS: S1 and S2 normal with no audible murmur, regular rhythm. ABDOMEN: No hepatosplenomegaly, normal bowel sounds, no guarding or rigidity. SPINE: No scoliosis or deformity SKIN: No rashes CENTRAL NERVOUS SYSTEM: No focal deficits, tone is normal in all 4 extremities. EXTREMITIES: There is no peripheral edema. No clubbing, no cyanosis. Peripheral pulses are intact. Results - Laboratory Findings CBC and BMP: 11/07/22 20:50 11/07/22 20:50 PT/INR, D-dimer PT 9.9 sec (9.0-12.0) 11/07/22 20:50 INR 0.9 (<1.2) 11/07/22 20:50 Abnormal lab findings: Abnormal Labs 11/07/22 20:50 BUN 38 H Glucose 150 H Alkaline Phosphatase 153 H - Diagnostic Findings Chest x-ray: image reviewed Assessment and Plan Assessment: Acute back pain of unclear etiology, x-rays pending Acute exacerbation of chronic obstructive pulmonary disease Former smoker Coronary disease with previous stent placement Peripheral vascular disease with previous stent placements Hyperlipidemia Plan: The patient was seen and evaluated Chest x-ray, labs and medications reviewed Continue Symbicort, DuoNeb inhalations, prednisone Obtain an x-ray of the cervical and thoracic spine We will continue to follow and make further recommendations based on her clinical status I have personally seen and examined the patient, performed the documentation and the assessment and plan as written. Number of minutes spent on the visit: 20.
--- NOTE | 2022-11-08 12:35 | HP ---
HISTORY AND PHYSICAL CHIEF COMPLAINT: Shortness of breath, chest pain, and back pain. HISTORY OF PRESENT ILLNESS: This is an 82-year-old woman with a past medical history of multiple medical problems including COPD, chest pain, angina, is complaining of increasing in shortness of breath over the past several days. The patient also complaining of chest pain, which is felt mostly in the lateral part of the left side of the chest and also back pain and some neck pain also. The patient came to [facility] and was admitted for further evaluation and treatment. There is no history of any fever, rigors, or chills at this time. PAST MEDICAL HISTORY: Reviewed, include COPD. Rest of the history and rest of the chart is also reviewed. HOME MEDICATIONS: Reviewed include Imdur. Doses and rest of medications reviewed. ALLERGIES: None. FAMILY HISTORY: No history of heart disease or strokes in the family. SOCIAL HISTORY: Previous history of smoking. REVIEW OF SYSTEMS: A 14-point review is negative except as mentioned earlier. PHYSICAL EXAMINATION: VITAL SIGNS: Pulse is 72, blood pressure 110/64, respirations 18. HEENT: Conjunctivae normal. NECK: No jugular venous distention. CARDIOVASCULAR: S1, S2. RESPIRATIONS: Breathing efforts increased. Bilateral scattered rhonchi and crackles. Some local tenderness in the lateral part of the chest. ABDOMEN: Soft, nontender. LEGS: No edema. No swelling. NERVOUS SYSTEM: No focal deficits. SKIN: No ulcer, rash, bleeding. JOINTS: No active deforming arthropathy. LABORATORY DATA: Reviewed. Chest x-ray reviewed personally. The rest of the labs are also reviewed personally. ASSESSMENT: 1. Chronic obstructive pulmonary disease acute exacerbation. 2. Chest pain and back pain, possibly degenerative joint disease. 3. History of angina. 4. History of vascular disorder. 5. History of prediabetes. 6. History of coronary artery disease stent. 7. History of hysterectomy. RECOMMENDATIONS AND DISCUSSION: In this 82-year-old woman who presented with multiple complex medical issues, we will monitor the patient closely. I will recommend optimize the bronchodilator treatment, steroids. The patient also complaining of back pain. I would also recommend a skeletal survey with x-ray of the neck and back also and obtain orthopedic evaluation. Cardiology also will be consulted because of the patient has previous cardiac history, even though the pain is not typical. Overall prognosis is guarded because in this elderly individual with multiple complex medical issues, which I discussed at length with the daughter at the bedside. Further recommendations to follow. See orders for further details. MMODL / IJN: [id number] /
--- NOTE | 2022-11-08 12:40 | XR ---
EXAMINATION TYPE: XR cervical spine comp DATE OF EXAM: 11/08/2022 COMPARISON: None HISTORY: Neck pain TECHNIQUE: 5 view cervical spine FINDINGS: There is loss of disc height at C3-4 through C7-T1. Retrolisthesis of C4 posterior on C5 is present. Anterior vertebral body spurring is present see 3 through C7. Posterior spinal lamellar bev e appears intact. Prevertebral space is normal. Foramen appear patent Odontoid appears unremarkable a s visualized. There is some limitation at the tip due to the occiput. Note is made of carotid artery calcification. IMPRESSION: 1. Degenerative disc changes throughout the cervical spine. 2. Mild retrolisthesis of C4 on C5
[2022-11-08] MEDS: ISOSORBIDE MONONITRATE ER 30 MG TAB.ER.24H PO SCH (13:07)
[2022-11-08] MEDS: CLOPIDOGREL 75 MG TAB PO SCH (13:08)
[2022-11-08] MEDS: IPRATROPIUM-ALBUTEROL 3 ML NEB INHALATION SCH ×4 (13:23→20:54)
--- NOTE | 2022-11-08 15:12 | XR ---
EXAMINATION TYPE: XR thoracic spine complete DATE OF EXAM: 11/08/2022 COMPARISON: None HISTORY: Back pain TECHNIQUE: 3 view thoracic spine FINDINGS: There is a scoliosis present with convexity to the left centered at approximately T9. There is a superior endplate compression change in the mid to lower thoracic region approximately T9 level. Correlate with location of the patient's pain. There is exaggeration of thoracic kyphosis. IMPRESSION: 1. Superior endplate change may be present at approximately T9 region. Correlate with location of th e patient's pain. 2. Exaggeration of the thoracic kyphosis.
[2022-11-08] MEDS: SYMBICORT 160-4.5 MCG INHALER INHALATION SCH (20:54)
[2022-11-08] MEDS: ATORVASTATIN 40 MG TAB PO SCH (22:17)
[2022-11-08] MEDS: methylPREDNISolone SOD SUCCI 125 MG/2 ML VIAL IV SCH (22:19)
[2022-11-09] MEDS: methylPREDNISolone SOD SUCCI 125 MG/2 ML VIAL IV SCH ×4 (07:13→19:00)
[2022-11-09] MEDS ORDERED: IPRATROPIUM 0.5 MG/2.5 ML NEBU INHALATION SCH (08:00)
[2022-11-09] MEDS: SYMBICORT 160-4.5 MCG INHALER INHALATION SCH ×2 (09:09→19:57)
[2022-11-09] MEDS: IPRATROPIUM-ALBUTEROL 3 ML NEB INHALATION SCH ×4 (09:09→19:52)
--- NOTE | 2022-11-09 09:33 | P.CRDCN ---
History of Present Illness History of present illness: HISTORY OF PRESENT ILLNESS: This is a 82-year-old female with a past medical history significant for hyperlipidemia, peripheral vascular disease, COPD, and nicotine dependence. Patient follows in the office with Dr. Hatch. We have been asked to see the patient in consultation for chest pain. Patient examined at the bedside in the emergency room. Patient states she presented to the hospital with chief complaint of chest pain and back pain. This morning upon examination, she is denying any chest pain or pressure. She is complaining of significant back pain at the time of examination and is in tears. She reports the pain is in her upper back. She states the pain is worse with movement. She also complains of pain in her right lower 70. She currently denies shortness of breath. Vital signs are stable. * EKG reveals sinus mechanism with nonspecific ST-T wave changes. No procedures EKG available for review. * Chest xray vascular congestion. * Laboratory data: WBC 10.2. Hemoglobin 13.4. Platelet count 278. Sodium 137. Potassium 4.1. BUN 38. Creatinine 0.72. Magnesium 2.0. Troponin negative 1. ProBNP 405. * Current home cardiac medications include Plavix 75 mg daily, Lipitor 40 mg at night, and Imdur 30 mg daily * Most recent echocardiogram obtained in January 2022 revealed normal EF, mild to moderate TR, and mild to moderate MR * Cardiac catheterization history: July 2005 revealing 40% mid LAD and 50% proximal RCA stenosis * Patient underwent [place] scan stress test in November 2021 which was negative for ischemia * Patient underwent peripheral intervention in September 2022 with stenting of the proximal to distal right SFA REVIEW OF SYSTEMS: At the time of my exam: CONSTITUTIONAL: Denies fever or chills. HEENT: Denies blurred vision, vision changes, or eye pain. Denies hemoptysis CARDIOVASCULAR: Denies chest pain. Denies orthopnea. Denies PND. Denies palpitations RESPIRATORY: Denies shortness of breath. GASTROINTESTINAL: Denies abdominal pain. Denies nausea or vomiting. HEMATOLOGIC: Denies bleeding disorders. GENITOURINARY: Denies any blood in urine. SKIN: Denies pruitis. Denies rash. PHYSICAL EXAM: VITAL SIGNS: Reviewed. GENERAL: Well-developed in no acute distress. HEENT: Head is normocephalic. Pupils are equal, round. Sclerae anicteric. Mucous membranes of the mouth are moist. Neck supple. No JVD or thyromegaly LUNGS: Respirations even and unlabored. Lungs essentially clear to auscultation bilaterally. HEART: Regular rate and rhythm. S1 and S2 heard. ABDOMEN: Soft. Nondistended. Nontender. EXTREMITIES: Normal range of motion. No clubbing or cyanosis. Peripheral pulses intact. No lower extremity edema NEUROLOGIC: Awake and alert. Oriented x 3. ASSESSMENT: Chest pain, atypical, troponin negative 1 Back pain, etiology unclear Acute COPD exacerbation Hyperlipidemia Peripheral vascular disease with recent intervention with stenting of the proximal to distal right SFA, September 2022 Nonobstructive coronary artery disease Former nicotine dependence PLAN: Trend troponins Aspirin Continue additional home cardiac medications Orthopedics has been consulted for back pain Obtain 2-D echo to assess cardiac structure and function Further recommendations pending patient course Nurse practitioner note has been reviewed by physician. Signing provider agrees with the documented findings, assessment, and plan of care. Past Medical History Past Medical History: Chest Pain / Angina, COPD, Vascular Disorder Additional Past Medical History / Comment(s): pre diabetic, lower back pain,constipation, History of Any Multi-Drug Resistant Organisms: None Reported Past Surgical History: Heart Catheterization With Stent, Hysterectomy Additional Past Surgical History / Comment(s): neck surgery, cataract surgery, colonoscopy Past Anesthesia/Blood Transfusion Reactions: No Reported Reaction Date of Last Stent Placement:: 09/14/22 Past Psychological History: No Psychological Hx Reported Smoking Status: Former smoker Past Alcohol Use History: None Reported Past Drug Use History: None Reported Medications and Allergies Home Medications Medication Instructions Recorded Confirmed Type Atorvastatin [Lipitor] 40 mg PO HS 07/20/22 11/08/22 History Fluticasone/Umeclidin/Vilanter 1 puff INHALATION RT-DAILY 07/20/22 11/08/22 History [Trelegy Ellipta 100-62.5-25] Clopidogrel [Plavix] 75 mg PO DAILY 09/13/22 11/08/22 History Isosorbide Mononitrate ER [Imdur] 30 mg PO DAILY 09/13/22 11/08/22 History Albuterol Sulfate [Albuterol 2 puff PO RT-Q6H PRN 11/08/22 11/08/22 History Sulfate Hfa] Allergies Allergy/AdvReac Type Severity Reaction Status Date / Time No Known Allergies Allergy Verified 07/04/23 10:57 Physical Exam Vitals: Vital Signs Pulse Resp BP Pulse Ox 11/09/22 07:19 79 16 92 L 11/09/22 07:00 78 18 157/69 92 L 11/09/22 01:16 88 16 139/66 92 L 11/08/22 23:20 93 18 165/81 92 L 11/08/22 22:24 106 H 18 150/66 93 L 11/08/22 20:55 68 11/08/22 18:30 76 16 131/87 92 L 11/08/22 18:00 72 18 154/78 94 L 11/08/22 17:30 75 18 150/99 95 11/08/22 17:00 76 18 129/83 93 L 11/08/22 16:30 74 18 122/76 95 11/08/22 16:24 76 11/08/22 16:14 64 11/08/22 16:00 74 18 129/83 92 L 11/08/22 15:30 84 H 129/83 93 L 11/08/22 15:00 78 H 136/80 91 L 11/08/22 14:30 80 H 138/86 89 L 11/08/22 14:00 82 H 126/90 91 L 11/08/22 13:42 88 11/08/22 13:35 87 11/08/22 13:30 80 H 95 11/08/22 13:14 78 H 127/91 96 11/08/22 13:00 72 18 127/91 99 11/08/22 12:00 76 16 138/84 99 11/08/22 11:00 74 18 126/86 99 11/08/22 10:00 72 18 110/67 98 11/08/22 09:00 70 18 128/90 98 Results 11/07/22 20:50 11/07/22 20:50 Current Medications Generic Name Dose Route Start Last Admin Trade Name Freq PRN Reason Stop Dose Admin Acetaminophen 650 mg 11/08/22 04:45 Acetaminophen Tab 325 Mg Tab PO Q4HR PRN Mild Pain or Fever > 100.5 Hydrocodone Bitart/Acetaminophen 1 each 11/08/22 04:45 11/08/22 08:33 Hydrocodone/Apap 5-325mg 1 Each Tab PO 1 each Q6HR PRN Administration Moderate to Severe Pain (4-10) Albuterol/Ipratropium 3 ml 11/08/22 08:00 11/08/22 20:54 Ipratropium-Albuterol 3 Ml Neb INHALATION 3 ml RT-QID IVON Administration Albuterol/Ipratropium 3 ml 11/08/22 04:45 Ipratropium-Albuterol 3 Ml Neb INHALATION RT-Q2H PRN Shortness Of Breath Or Wheezing Aspirin 81 mg 11/09/22 09:00 Aspirin 81 Mg PO DAILY IVON Atorvastatin Calcium 40 mg 11/08/22 21:00 11/08/22 22:17 Atorvastatin 40 Mg Tab PO 40 mg HS IVON Administration Budesonide/Formoterol Fumarate 2 puff 11/08/22 20:00 11/08/22 20:54 Symbicort 160-4.5 Mcg Inhaler INHALATION 2 puff RT-BID IVON Administration Clopidogrel Bisulfate 75 mg 11/08/22 12:30 11/08/22 13:08 Clopidogrel 75 Mg Tab PO 75 mg DAILY IVON Administration Hydromorphone HCl 0.5 mg 11/08/22 12:18 Hydromorphone 0.5 Mg/0.5 Ml Syringe IVP Q6HR PRN Severe Pain (Scale 7 to 10) Isosorbide Mononitrate 30 mg 11/08/22 12:30 11/08/22 13:07 Isosorbide Mononitrate Er 30 Mg Tab.Er.24h PO 30 mg DAILY IVON Administration Methylprednisolone Sodium Succinate 60 mg 11/08/22 18:00 11/09/22 07:13 Methylprednisolone Sod Succi 125 Mg/2 Ml Vial IV Not Given Q6HR IVON Naloxone HCl 0.2 mg 11/08/22 04:45 Naloxone 0.4 Mg/Ml 1 Ml Vial IVP Q2M PRN Opioid Reversal 11/07/22 20:50 11/07/22 20:50
[2022-11-09] MEDS: CLOPIDOGREL 75 MG TAB PO SCH (10:13)
[2022-11-09] MEDS: ASPIRIN 81 MG PO SCH (10:13)
[2022-11-09] MEDS: ISOSORBIDE MONONITRATE ER 30 MG TAB.ER.24H PO SCH (10:13)
[2022-11-09 11:07] LABS: Basophils # (A) 0.01 X 10*3/uL (0.00-0.10); Basophils % (A) 0.1 %; Eosinophils # (A) 0 X 10*3/uL (0.04-0.35); Eosinophils % (A) 0 %; HCT 41.2 % (37.2-46.3); HGB 12.9 d/dL (12.0-15.0); Lymphocytes # (A) 0.79 X 10*3/uL (0.90-5.00); Lymphocytes % (A) 4.9 %; MCHC 31.3 d/dL (32.0-37.0); MCV 82.9 FL (80.0-97.0); Mean Platelet Volume 11.1 FL (9.5-12.2); Monocytes # (A) 0.55 X 10*3/uL (0.20-1.00); Monocytes % (A) 3.4 %; NRBC Per 100 WBC 0 X 10*3/uL (0.00-0.01); Neutrophils # (A) 14.68 X 10*3/uL (1.80-7.70); Neutrophils % (A) 91.1 %; Platelet Count 281 X 10*3/uL (140-440); RBC 4.97 X 10*6/uL (4.10-5.20); RDW 14.5 % (11.5-14.5); WBC 16.11 X 10*3/uL (4.50-10.00)
[2022-11-09 11:15] LABS: BUN/Creat Ratio 35.29 Ratio (12.00-20.00); Blood Urea Nitrogen 24.7 mg/dL (9.0-27.0); Calcium 9.3 mg/dL (8.7-10.3); Carbon Dioxide 22.4 mmol/L (21.6-31.8); Chloride 104 mmol/L (96-109); Glucose 151 mg/dL (70-110); Potassium 4.5 mmol/L (3.5-5.5); Sodium 139 mmol/L (135-145)
--- NOTE | 2022-11-09 11:41 | P.PN ---
Subjective Progress Note Date: 11/09/22 This is a pleasant 82-year-old female patient with a known history of chronic obstructive pulmonary disease, former smoker, peripheral vascular disease, coronary artery disease with previous stent placement who presented here to the emergency room early this morning with complaints of back pain. Still having issues with shortness of breath cough and congestion. When she coughs her pain is much worse. Chest x-ray reveals some vascular congestion. White count 10.2. Hemoglobin 13.4. Sodium 137. Potassium 4.1. Bicarb 25. BUN 38. Creatinine 0.72. Glucose 150. Troponin negative times one. ProBNP 405. Influenza screen negative. COVID-19 screen negative. RSV screen negative. Pro-calcitonin is pending. She's been initiated and DuoNeb inhalations, Symbicort, prednisone. He is seen today in the emergency department. Sitting up in a stretcher. Awake and alert in no acute distress. She is having some ongoing issues with her back even upon simple movement. He is maintaining good O2 saturations in the mid to upper 90s on room air. Afebrile. Hemodynamically stable. The patient is seen today 11/09/2022 follow-up in the emergency department. She is sitting up in the stretcher. Still having some significant back pain. Denies any worsening shortness of breath, cough or congestion. Tinnitus to maintain good O2 saturations in the upper 90s on room air. She's afebrile. White count 16.1. Hemoglobin 12.9. Platelets 281. Sodium 139. Potassium 4.5. Bicarb 22. BUN 25. Creatinine 0.7. Glucose 151. Troponin negative 2. Cervical spine chest x-ray revealed degenerative disc changes throughout the cervical spine. Mild retro-listhesis on C4 and C5. X-rays of the thoracic spine revealed superior endplate compression change at T9 there is exaggeration of the thoracic kyphosis. Orthopedics have been consulted. She is continued on DuoNeb inhalations, Symbicort, Solu-Medrol. Dilaudid alternating with [place] for pain control. Objective - Vital Signs Vital signs: Vital Signs Temp 98.2 F 11/07/22 22:30 Pulse 77 11/09/22 11:29 Resp 16 11/09/22 11:29 BP 173/77 11/09/22 11:29 Pulse Ox 98 11/09/22 11:29 FiO2 - Exam GENERAL EXAM: Alert, 82-year-old female, on room air, fairly comfortable in no apparent distress. HEAD: Normocephalic. EYES: Normal reaction of pupils, equal size. NOSE: Clear with pink turbinates. THROAT: No erythema or exudates. NECK: No masses, no JVD. CHEST: No chest wall deformity. LUNGS: Equal air entry with end expiratory wheeze, diminished. CVS: S1 and S2 normal with no audible murmur, regular rhythm. ABDOMEN: No hepatosplenomegaly, normal bowel sounds, no guarding or rigidity. SPINE: No scoliosis or deformity SKIN: No rashes CENTRAL NERVOUS SYSTEM: No focal deficits, tone is normal in all 4 extremities. EXTREMITIES: There is no peripheral edema. No clubbing, no cyanosis. Peripheral pulses are intact. - Labs CBC & Chem 7: 11/09/22 07:12 11/09/22 07:12 Labs: Abnormal Lab Results - Last 24 Hours (Table) 11/09/22 11/09/22 Range/Units 07:12 07:12 WBC 16.11 H (4.50-10.00) X 10*3/uL MCH 26.0 L (27.0-32.0) pg MCHC 31.3 L (32.0-37.0) d/dL Neutrophils # 14.68 H (1.80-7.70) X 10*3/uL Lymphocytes # 0.79 L (0.90-5.00) X 10*3/uL Eosinophils # 0 L (0.04-0.35) X 10*3/uL Anion Gap 12.60 H (4.00-12.00) mmol/L BUN/Creatinine Ratio 35.29 H (12.00-20.00) Ratio Glucose 151 H (70-110) mg/dL Assessment and Plan Assessment: Acute back pain of unclear etiology, thoracic spine x-ray reveals superior endplate compression at T9 Acute exacerbation of chronic obstructive pulmonary disease Former smoker Coronary artery disease with previous stent placement Peripheral vascular disease with previous stent placements Hyperlipidemia Plan: The patient was seen and evaluated X-rays, labs and medications reviewed Orthopedics consulted Continue Symbicort, DuoNeb inhalations, steroids Echocardiogram pending We will continue to follow I have personally seen and examined the patient, performed the documentation and the assessment and plan as written. Number of minutes spent on the visit: 10.
--- NOTE | 2022-11-09 12:23 | CA ---
Transthoracic Echo Report Name: Rachelle Martinez Age: 82 Gender: F : 1940 Exam Date: 11/09/2022 10:48 Exam Location: [facility] Ht (in): 62 Wt (lb): 110 Ordering Physician: Erika Adair Attending/Referring Phys: [id number], Giovany Channel Process Supervisor Marissa Guzman [facility] Procedure CPT: Indications: LV function, CP Cardiac Hx: Technical Quality: Fair Contrast 1: Total Dose (mL): Contrast 2: Total Dose (mL): MEASUREMENTS (Male / Female) Normal Values 2D ECHO LV Diastolic Diameter PLAX 4.1 cm 4.2 - 5.9 / 3.9 - 5.3 cm LV Systolic Diameter PLAX 2.6 cm IVS Diastolic Thickness 0.9 cm 0.6 - 1.0 / 0.6 - 0.9 cm LVPW Diastolic Thickness 1.0 cm 0.6 - 1.0 / 0.6 - 0.9 cm LV Relative Wall Thickness 0.5 LVOT Diameter 2.0 cm Ascending Aorta Diameter 3.0 cm M-MODE Aortic Root Diameter MM 2.7 cm LA Systolic Diameter MM 2.6 cm LA Ao Ratio MM 0.9 AV Cusp Separation MM 1.5 cm DOPPLER AV Peak Velocity 155.1 cm/s AV Peak Gradient 9.6 mmHg AV Mean Velocity 107.9 cm/s AV Mean Gradient 5.2 mmHg AV Velocity Time Integral 33.2 cm LVOT Peak Velocity 128.4 cm/s LVOT Peak Gradient 6.6 mmHg LVOT Velocity Time Integral 29.9 cm LVOT Stroke Volume 92.1 cm??? LVOT Stroke Volume Index 62.1 ml/m??? LVOT Cardiac Index 4989.0 cm???/min???m??? AV Area Cont Eq vti 2.8 cm??? AV Area Cont Eq pk 2.5 cm??? Mitral E Point Velocity 76.1 cm/s Mitral A Point Velocity 122.5 cm/s Mitral E to A Ratio 0.6 MV Deceleration Time 161.7 ms LV E' Lateral Velocity 5.6 cm/s Mitral E to LV E' Lateral Ratio 13.6 LV E' Septal Velocity 5.6 cm/s Mitral E to LV E' Septal Ratio 13.6 TR Peak Velocity 291.9 cm/s TR Peak Gradient 34.1 mmHg Right Atrial Pressure 15.0 mmHg Pulmonary Artery Systolic Pressu 49.1 mmHg Right Ventricular Systolic Press 49.1 mmHg FINDINGS Left Ventricle Mildly increased posterior wall thickness. No obvious regional wall motion abnormalities. Left ventricular cavity size normal. Left ventricular ejection fraction is estimated at 55-60%. Right Ventricle Normal right ventricular size and function. Moderate pulmonary hypertension. Right Atrium Normal right atrial size. Left Atrium Normal left atrial size. Mitral Valve Structurally normal mitral valve. Mild mitral annular calcification. Mildly decreased mobility of the posterior mitral valve leaflet. Mild mitral regurgitation. Aortic Valve Trileaflet aortic valve. Aortic valve sclerosis. No aortic regurgitation. Tricuspid Valve Structurally normal tricuspid valve. Mild tricuspid regurgitation. Pulmonic Valve Pulmonic valve not well visualized. Pericardium No pericardial effusion. Aorta Normal size aortic root. CONCLUSIONS Normal LV systolic function Thickened posterior pericardium Previewed by: Dr. Ricki Cunningham MD (Electronically Signed) Final Date: 09 November 2022 12:22
--- NOTE | 2022-11-09 13:10 | CT ---
EXAMINATION TYPE: CT thoracic spine wo con CT DLP: 387 mGycm, Automated exposure control for dose reduction was used. DATE OF EXAM: 11/09/2022 12:50 PM COMPARISON: Thoracic spine radiograph 11/08/2022. CLINICAL INDICATION:Female, 82 years old with history of compression fracture; PHH, Compression fract ure TECHNIQUE: Axial images of the thoracic spine were obtained without contrast. Coronal and sagittal re formats were performed. FINDINGS: Mild levoscoliotic curvature of the thoracic spine centered at approximately T9. Chronic a ppearing anterior wedge compression deformity of the T12 vertebral body with approximately 25% height loss and no retropulsion. Associated sclerosis without paravertebral edema. Multilevel degenerative disc disease with disc space narrowing, endplate process, vacuum disc disease, and anterior osteophyt osis. No spondylolisthesis. Prominent Schmorl's node suggests involving the superior endplate of the T10 vertebral body. No tentative acute fracture. I do not see any evidence of extradural defects. Irregular heterogenous medial right apical soft tissue mass measuring 2.9 x 5.3 x 4.3 cm in TV, AP, C C dimensions. This abuts the posterior aspect of the trachea and the lateral aspect of the esophagus. Extends from the T1-T2 disc level to the T4 level. There is associated soft tissue destruction of th e right lateral aspect of the T2-T3 vertebral bodies. Increase sclerosis identified within the T3 brandan tebral body. There is mild 2 mm retropulsion of the T3 vertebral body causing at least mild central c anal stenosis. Additional spiculated 6 mm nodular density within the lateral right upper lobe (series 201, image 24). Atherosclerotic calcification of the aorta. Trace bilateral pleural effusions. Nodular thickening of the left adrenal gland. Coronary artery calcifications IMPRESSION: 1. Irregular heterogenous soft tissue mass measuring up to 5.3 cm within the medial aspect of the ri ght upper lobe. This demonstrates destructive soft tissue involvement of the right lateral aspects of the T2 and T3 vertebral bodies. Mild retropulsion of 2 mm of the posterior endplate of the T3 verteb ral body causing at least mild spinal canal stenosis. Additional spiculated 6 mm nodular density with in the lateral right upper lobe. Findings are considered malignancy until proven otherwise. Further w orkup is recommended. 2. Chronic appearing anterior wedge compression deformity of the T12 vertebral body with approximate ly 25% height loss and no retropulsion. 3. Moderate multilevel degenerative disc disease. 4. Trace bilateral pleural effusions.
--- NOTE | 2022-11-09 13:11 | P.CNOR ---
History of Present Illness - [facility] Consult date: 11/09/22 Consult reason: back pain History of present illness: Patient is an 82-year-old female who presented to [facility] on 11/08/2022 with regards to shortness of breath and back pain. She was evaluated in the emergency room, she was then admitted under internal medicine with pulmonology and our orthopedic team placed on consult. Patient has no history of COPD, coronary artery disease, peripheral vascular disease. Patient was evaluated today in the emergency room, she is resting comfortably in her hospital bed. Patient states the back pain did start about 2 weeks ago. She denies any recent trauma, this to include falls. Patient is very independent at home, she does live alone. She does utilize a walker occasionally for ambulation. Patient denies any previous cervical, thoracic or lumbar surgery. Patient states that the pain is near the upper to mid back, does radiate both medial and lateral. She notices that with the shortness of breath along with coughing it has made symptoms overall worse. Patient denies any acute weakness in the lower extremities or upper extremities. She denies any acute changes in her overall gait. She denies any numbness or tingling to the bilateral lower extremities and bilateral upper extremities. She denies any genital or peroneal numbness or tingling. She denies any loss of bowel or bladder function. She denies any joint pain into the bilateral shoulders, knees, hips at this time. Review of Systems Constitutional: Reports as per HPI Past Medical History Past Medical History: Chest Pain / Angina, COPD, Vascular Disorder Additional Past Medical History / Comment(s): pre diabetic, lower back pain,constipation, History of Any Multi-Drug Resistant Organisms: None Reported Past Surgical History: Heart Catheterization With Stent, Hysterectomy Additional Past Surgical History / Comment(s): neck surgery, cataract surgery, colonoscopy Past Anesthesia/Blood Transfusion Reactions: No Reported Reaction Date of Last Stent Placement:: 09/14/22 Past Psychological History: No Psychological Hx Reported Smoking Status: Former smoker Past Alcohol Use History: None Reported Past Drug Use History: None Reported Medications and Allergies Home Medications Medication Instructions Recorded Confirmed Type Atorvastatin [Lipitor] 40 mg PO HS 07/20/22 11/08/22 History Fluticasone/Umeclidin/Vilanter 1 puff INHALATION RT-DAILY 07/20/22 11/08/22 History [Trelegy Ellipta 100-62.5-25] Clopidogrel [Plavix] 75 mg PO DAILY 09/13/22 11/08/22 History Isosorbide Mononitrate ER [Imdur] 30 mg PO DAILY 09/13/22 11/08/22 History Albuterol Sulfate [Albuterol 2 puff PO RT-Q6H PRN 11/08/22 11/08/22 History Sulfate Hfa] Allergies Allergy/AdvReac Type Severity Reaction Status Date / Time No Known Allergies Allergy Verified 11/08/22 10:57 Physical Examination Gen: AOx3, NAD VSS stable at this time Kyphotic deformity present Integument: No obvious open lesions or sores are visualized throughout the cervical, thoracic or lumbar spine Palpation: No tenderness with palpation of the midline and paraspinal region of the cervical or lumbar area. She is very tender in the midline and paraspinal region to the mid thoracic spine ROM: Full painless range of motion in all major muscle groups of the bilateral upper and lower extremities, no focal deficits appreciated Sensory Exam: [place] exam to light touch is intact C5-T1 [place] exam to light touch is intact L2-S1 Motor: 4+/5 strength appreciated in the bilateral lower extremities with hip flexion, knee extension, knee flexion, plantar flexion, dorsiflexion, EHL, FHL 4-/5 strength appreciated in the bilateral upper extremities with shoulder elevation and shoulder abduction 4/5 strength appreciated in the bilateral upper extremities with elbow extension, elbow flexion, wrist extension, wrist flexion, eating disorder specialist Reflexes: 2/4 in all UE and LE Negative Elizabeth's bilaterally Negative Babinski bilaterally Negative clonus bilaterally Special Test: Negative straight leg raise bilaterally Results - Labs Labs: Abnormal Lab Results - Last 24 Hours (Table) 11/09/22 11/09/22 Range/Units 07:12 07:12 WBC 16.11 H (4.50-10.00) X 10*3/uL MCH 26.0 L (27.0-32.0) pg MCHC 31.3 L (32.0-37.0) d/dL Neutrophils # 14.68 H (1.80-7.70) X 10*3/uL Lymphocytes # 0.79 L (0.90-5.00) X 10*3/uL Eosinophils # 0 L (0.04-0.35) X 10*3/uL Anion Gap 12.60 H (4.00-12.00) mmol/L BUN/Creatinine Ratio 35.29 H (12.00-20.00) Ratio Glucose 151 H (70-110) mg/dL H & H 11/07/22 11/09/22 Range/Units 20:50 07:12 Hgb 13.4 12.9 (11.4-16.0) gm/dL Hct 42.1 41.2 (34.0-46.0) % Coagulation 11/07/22 Range/Units 20:50 INR 0.9 (<1.2) Result Diagrams: 11/09/22 07:12 11/09/22 07:12 Assessment and Plan Assessment: Thoracic back pain T9 vertebral body changes Multilevel cervical spondylosis Scoliosis Kyphosis Other medical comorbidities Plan: Imaging: Cervical spine x-rays and thoracic spine x-rays along with reports were reviewed. Reports demonstrated vertebral body changes noted at T9. Kyphotic deformity present. Cervical x-rays demonstrate multilevel cervical spondylosis Plan: I was able to discuss the case, this including both physical exam findings and imaging studies might attending Dr. Breaux. Recommending no emergent orthopedic spine surgical intervention at this time Computed tomography scan of the thoracic spine without contrast was ordered for further evaluation Pain control, okay to utilize Tylenol, NSAIDs and low-dose narcotics DVT prophylaxis per primary medical service Weight-bear as tolerated with walker, avoid lifting, twisting, bending at this point Other medical assistant secretary and recommendations appreciated Further recommendations to follow Time with Patient: Less than 30
--- NOTE | 2022-11-09 14:17 | PN ---
PROGRESS NOTE DATE OF SERVICE: 11/09/2022 SUBJECTIVE: This is an 82-year-old woman who was admitted with shortness of breath, also had some chest pain and back pain. The patient has apparently had severe DJD. There is no history of any fever, rigors, or chills. PAST MEDICAL HISTORY: Reviewed. REVIEW OF SYSTEMS: A 14-point review is negative except as mentioned earlier. CURRENT MEDICATIONS: Reviewed, include Solu-Medrol and bronchodilators. PHYSICAL EXAMINATION: VITAL SIGNS: Pulse is 79, blood pressure 152/82, respirations 20. HEENT: Conjunctivae normal. NECK: No jugular venous distention. CARDIOVASCULAR: S1, S2. RESPIRATIONS: Breath sounds diminished at the bases. Bilateral scattered rhonchi. ABDOMEN: Soft. NERVOUS SYSTEM: No focal deficits. LABORATORY DATA: Labs are reviewed. IMAGING STUDIES: Chest x-ray reviewed personally. ASSESSMENT: 1. Chronic obstructive pulmonary disease, acute exacerbation. 2. Chest pain and back pain, possibly degenerative joint disease, severe. 3. History of angina. 4. History of vascular disorder. 5. History of prediabetes. 6. History of coronary artery disease, stent. 7. History of hysterectomy. RECOMMENDATIONS: Recommend to continue current management. I will recommend to optimize the bronchodilator treatment. Pulmonary consultation. Orthopedic evaluation. Symptomatic treatment. A 2D echo was also done which showed normal left ventricular dysfunction and thickened posterior pericardium. Cardiology is following the patient closely. Once again, the prognosis is guarded. See orders for further details. Further recommendations to follow. MMODL / IJN: [id number] /
[2022-11-09] MEDS: ATORVASTATIN 40 MG TAB PO SCH (21:38)
[2022-11-09] MEDS: HYDROcodone/APAP 5-325MG 1 EACH TAB PO PRN (21:41)
[2022-11-10] MEDS: methylPREDNISolone SOD SUCCI 125 MG/2 ML VIAL IV SCH ×2 (00:08→06:43)
[2022-11-10] MEDS: CALCIUM CARBONATE 500 MG CHEWABLE PO PRN ×3 (06:43→22:29)
[2022-11-10] MEDS: PANTOPRAZOLE 40 MG TABLET PO SCH (06:43)
[2022-11-10] MEDS: HYDROmorphone 0.5 MG/0.5 ML SYRINGE IVP PRN ×2 (06:48→17:36)
[2022-11-10] MEDS: SYMBICORT 160-4.5 MCG INHALER INHALATION SCH ×2 (08:46→21:34)
[2022-11-10] MEDS: IPRATROPIUM-ALBUTEROL 3 ML NEB INHALATION SCH ×4 (08:47→21:34)
[2022-11-10] MEDS: CLOPIDOGREL 75 MG TAB PO SCH (09:01)
[2022-11-10] MEDS: ASPIRIN 81 MG PO SCH (09:01)
[2022-11-10] MEDS: ISOSORBIDE MONONITRATE ER 30 MG TAB.ER.24H PO SCH (09:02)
[2022-11-10] MEDS: predniSONE 10 MG TAB PO SCH (09:03)
--- NOTE | 2022-11-10 09:54 | P.GSCN ---
History of Present Illness Consult date: 11/10/22 Reason for Consult: BPD much lower and left arm Requesting physician: Michelle Celaya History of present illness: This is a pleasant 82-year-old female who presented to the emergency department with complaints of shortness of breath, chest pain, and back pain. She has a past medical history including COPD, vascular disorder, coronary artery disease status post cardiac catheterization with stent. Patient had multiple imaging as part of her workup. Thoracic spine CT reported irregular heterogeneous soft tissue mass measuring up to 5.3 cm within the medial aspect of the right upper lobe. Demonstrates destructive soft tissue involvement of the right lateral aspect of the T2 and T3 vertebral bodies. Mild retropulsion of 2 mm of posterior complain of the T3 vertebral body causing at least mild spinal canal stenosis. Additional spiculated 6 mm nodular density within the lateral right upper lobe. Findings are considered malignancy until proven otherwise. Chronic appearing anterior wedge compression deformity of the T12 vertebral body with approximately 12% height loss and no retropulsion. Moderate multilevel or degenerative disc disease. Trace bilateral pleural effusions. There are multiple consultants on the patient's case. However it was noted that she had lower blood pressures in her left arm compared to her right arm. Vascular surgery was consulted for discrepancy in blood pressures. She states she has no pain in her left upper extremity. She has some numbness and tingling in bilateral upper extremities no pain in her hands. Also reports bilateral numbness and tingling in her feet. She currently is without any acute complaints. She is lying in bed denies shortness of breath, chest pain, abdominal pain, nausea or vomiting at this time. Review of Systems A 14 point review systems was completed all pertinent positives and negatives as stated in the HPI. Past Medical History Past Medical History: Chest Pain / Angina, COPD, Vascular Disorder Additional Past Medical History / Comment(s): pre diabetic, lower back pain,constipation, History of Any Multi-Drug Resistant Organisms: None Reported Past Surgical History: Heart Catheterization With Stent, Hysterectomy Additional Past Surgical History / Comment(s): neck surgery, cataract surgery, colonoscopy Past Anesthesia/Blood Transfusion Reactions: No Reported Reaction Date of Last Stent Placement:: 09/14/22 Past Psychological History: No Psychological Hx Reported Smoking Status: Former smoker Past Alcohol Use History: None Reported Past Drug Use History: None Reported Medications and Allergies Home Medications Medication Instructions Recorded Confirmed Type Atorvastatin [Lipitor] 40 mg PO HS 07/20/22 11/08/22 History Fluticasone/Umeclidin/Vilanter 1 puff INHALATION RT-DAILY 07/20/22 11/08/22 History [Trelegy Ellipta 100-62.5-25] Clopidogrel [Plavix] 75 mg PO DAILY 09/13/22 11/08/22 History Isosorbide Mononitrate ER [Imdur] 30 mg PO DAILY 09/13/22 11/08/22 History Albuterol Sulfate [Albuterol 2 puff PO RT-Q6H PRN 11/08/22 11/08/22 History Sulfate Hfa] Allergies Allergy/AdvReac Type Severity Reaction Status Date / Time No Known Allergies Allergy Verified 11/08/22 10:57 Surgical - Exam Vital Signs Temp Pulse Resp BP Pulse Ox 98.2 F 70 18 174/82 98 11/07/22 22:30 11/07/22 22:30 11/07/22 22:30 11/07/22 22:30 11/07/22 22:30 General appearance: The patient is alert, oriented, appears in no acute distress. HET: Head is normocephalic and atraumatic. Pupils are equal and reactive. Neck: Supple. Heart: Regular. Lungs: Equal expansion, normal respiratory effort. Abdomen: Soft, nontender, nondistended. Extremities: Normal skin color and turgor. Diminished radial pulses bilaterally. Patient has full range of motion of bilateral upper extremities, good capillary refill. Neurological: No focal deficits. Strength and sensation are grossly intact. Results - Labs 11/09/22 07:12 11/09/22 07:12 Abnormal Lab Results - Last 24 Hours (Table) 11/09/22 11/09/22 Range/Units 07:12 07:12 WBC 16.11 H (4.50-10.00) X 10*3/uL MCH 26.0 L (27.0-32.0) pg MCHC 31.3 L (32.0-37.0) d/dL Neutrophils # 14.68 H (1.80-7.70) X 10*3/uL Lymphocytes # 0.79 L (0.90-5.00) X 10*3/uL Eosinophils # 0 L (0.04-0.35) X 10*3/uL Anion Gap 12.60 H (4.00-12.00) mmol/L BUN/Creatinine Ratio 35.29 H (12.00-20.00) Ratio Glucose 151 H (70-110) mg/dL Diabetes panel 11/09/22 Range/Units 07:12 Sodium 139 (135-145) mmol/L Potassium 4.5 (3.5-5.5) mmol/L Chloride 104 (96-109) mmol/L Carbon Dioxide 22.4 (21.6-31.8) mmol/L BUN 24.7 (9.0-27.0) mg/dL Creatinine 0.7 (0.6-1.5) mg/dL Glucose 151 H (70-110) mg/dL Calcium 9.3 (8.7-10.3) mg/dL Calcium panel 11/09/22 Range/Units 07:12 Calcium 9.3 (8.7-10.3) mg/dL Pituitary panel 11/09/22 Range/Units 07:12 Sodium 139 (135-145) mmol/L Potassium 4.5 (3.5-5.5) mmol/L Chloride 104 (96-109) mmol/L Carbon Dioxide 22.4 (21.6-31.8) mmol/L BUN 24.7 (9.0-27.0) mg/dL Creatinine 0.7 (0.6-1.5) mg/dL Glucose 151 H (70-110) mg/dL Calcium 9.3 (8.7-10.3) mg/dL Adrenal panel 11/09/22 Range/Units 07:12 Sodium 139 (135-145) mmol/L Potassium 4.5 (3.5-5.5) mmol/L Chloride 104 (96-109) mmol/L Carbon Dioxide 22.4 (21.6-31.8) mmol/L BUN 24.7 (9.0-27.0) mg/dL Creatinine 0.7 (0.6-1.5) mg/dL Glucose 151 H (70-110) mg/dL Calcium 9.3 (8.7-10.3) mg/dL - Imaging Comments: Carotid duplex dated 09/22/2021 Moderate arthrosclerotic change at both bifurcations. Measurement suggests mild/borderline moderate left ICA stenosis. Additional elevated velocities within the left vertebral artery suggesting a proximal stenosis Assessment and Plan Assessment: 1. Blood pressure discrepancies with left upper extremity lower than right. 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 Shortness of breath 3. Chest pain 4. Back pain 5. Lung mass on CT Plan: The patient had some outpatient workup done in the past year with carotid duplex imaging with antegrade vertebral flow, patient likely with some component of subclavicular stenosis. She is asymptomatic and at this time there is no indication for any vascular surgical intervention. Continue with current recommendations from other consultants. Thank you for this consultation, we will sign off at this time. The impression and plan of care has been dictated as directed. I performed a history and examination of this patient, discussed the same with the dictator. I agree with the dictator's note ,documented as a scribe. Any additional findings or plans will be noted.
--- NOTE | 2022-11-10 11:18 | P.PN ---
Subjective Progress Note Date: 11/10/22 Principal diagnosis: Thoracic back pain Patient was evaluated today at bedside, she is resting comfortably. She continues to have discomfort in the thoracic spine mainly with movement. Pain medication is helping at this time. Patient did undergo the CT of the thoracic spine yesterday. Images demonstrated a right lung mass with soft tissue involvement of the T2 and T3 vertebral body. Compression deformities also noted at T10 and T12. Patient denies any new onset weakness in the bilateral upper and lower extremities, she denies any bowel or bladder changes at this time. She denies any numbness or tingling to the perineal her genital region. Objective - Vital Signs Vital signs: Vital Signs Temp 97.5 F L 11/10/22 06:58 Pulse 76 11/10/22 09:00 Resp 18 11/10/22 06:58 BP 115/75 11/10/22 06:58 Pulse Ox 95 11/10/22 08:47 FiO2 Intake & Output 11/09/22 11/10/22 11/10/22 18:59 06:59 18:59 Intake Total 280 Balance 280 Weight 49.26 kg Intake: IV 20 Invasive Line 1 20 Oral 260 Other: # Voids 2 - Exam Gen: AOx3, NAD VSS stable at this time Kyphotic deformity present Integument: No obvious open lesions or sores are visualized throughout the cervical, thoracic or lumbar spine Palpation: No tenderness with palpation of the midline and paraspinal region of the cervical or lumbar area. She is very tender in the midline and paraspinal region to the mid thoracic spine ROM: Full painless range of motion in all major muscle groups of the bilateral upper and lower extremities, no focal deficits appreciated Sensory Exam: Senory exam to light touch is intact C5-T1 Senosry exam to light touch is intact L2-S1 Motor: 4+/5 strength appreciated in the bilateral lower extremities with hip flexion, knee extension, knee flexion, plantar flexion, dorsiflexion, EHL, FHL 4-/5 strength appreciated in the bilateral upper extremities with shoulder elevation and shoulder abduction 4/5 strength appreciated in the bilateral upper extremities with elbow extension, elbow flexion, wrist extension, wrist flexion, log rider Reflexes: 2/4 in all UE and LE Negative Elizabeth's bilaterally Negative Babinski bilaterally Negative clonus bilaterally Special Test: Negative straight leg raise bilaterally - Labs CBC & Chem 7: 11/09/22 07:12 11/09/22 07:12 Labs: Abnormal Lab Results - Last 24 Hours (Table) 11/09/22 11/09/22 Range/Units 07:12 07:12 WBC 16.11 H (4.50-10.00) X 10*3/uL MCH 26.0 L (27.0-32.0) pg MCHC 31.3 L (32.0-37.0) d/dL Neutrophils # 14.68 H (1.80-7.70) X 10*3/uL Lymphocytes # 0.79 L (0.90-5.00) X 10*3/uL Eosinophils # 0 L (0.04-0.35) X 10*3/uL Anion Gap 12.60 H (4.00-12.00) mmol/L BUN/Creatinine Ratio 35.29 H (12.00-20.00) Ratio Glucose 151 H (70-110) mg/dL Assessment and Plan Assessment: Thoracic back pain Right lung mass T2 and T3 vertebral body fracture, pathologic Chronic T10 and T12 vertebral compression fracture Multilevel cervical spondylosis Scoliosis Kyphosis Other medical comorbidities Plan: Imaging: Images and reports were reviewed of the thoracic computed tomography scan. Right lung mass was noted in the areas of T1 through T4. There is soft tissue involvement of both T2 and T3 vertebral body. Wedge deformities were also noted at the T10 and T12 representing chronic compression fracture. Plan: I was able to discuss the case, this including both physical exam findings and imaging studies might attending Dr. Breaux. Recommending no emergent orthopedic spine surgical intervention at this time Discussed with nursing the need to reach out both internal medicine and pulmonology regarding the right lung mass to decide on further consults and treatment plan Pain control, okay to utilize Tylenol, NSAIDs and low-dose narcotics DVT prophylaxis per primary medical service Weight-bear as tolerated with walker, avoid lifting, twisting, bending at this point Other medical doctor md/medical director and recommendations appreciated Will continue to follow during hospital stay
--- NOTE | 2022-11-10 13:18 | P.PN ---
Subjective Progress Note Date: 11/10/22 This is a pleasant 82-year-old female patient with a known history of chronic obstructive pulmonary disease, former smoker, peripheral vascular disease, coronary artery disease with previous stent placement who presented here to the emergency room early this morning with complaints of back pain. Still having issues with shortness of breath cough and congestion. When she coughs her pain is much worse. Chest x-ray reveals some vascular congestion. White count 10.2. Hemoglobin 13.4. Sodium 137. Potassium 4.1. Bicarb 25. BUN 38. Creatinine 0.72. Glucose 150. Troponin negative times one. ProBNP 405. Influenza screen negative. COVID-19 screen negative. RSV screen negative. Pro-calcitonin is pending. She's been initiated and DuoNeb inhalations, Symbicort, prednisone. He is seen today in the emergency department. Sitting up in a stretcher. Awake and alert in no acute distress. She is having some ongoing issues with her back even upon simple movement. He is maintaining good O2 saturations in the mid to upper 90s on room air. Afebrile. Hemodynamically stable. The patient is seen today 11/09/2022 follow-up in the emergency department. She is sitting up in the stretcher. Still having some significant back pain. Denies any worsening shortness of breath, cough or congestion. Tinnitus to maintain good O2 saturations in the upper 90s on room air. She's afebrile. White count 16.1. Hemoglobin 12.9. Platelets 281. Sodium 139. Potassium 4.5. Bicarb 22. BUN 25. Creatinine 0.7. Glucose 151. Troponin negative 2. Cervical spine chest x-ray revealed degenerative disc changes throughout the cervical spine. Mild retro-listhesis on C4 and C5. X-rays of the thoracic spine revealed superior endplate compression change at T9 there is exaggeration of the thoracic kyphosis. Orthopedics have been consulted. She is continued on DuoNeb inhalations, Symbicort, Solu-Medrol. Dilaudid alternating with [place] for pain control. The patient is seen today 11/10/2022 in follow-up on the regular medical floor. She is currently resting comfortably in bed. Awake and alert in no acute distress. Breathing easier today compared to yesterday. She is maintaining good O2 saturations in the 90s on room air. No IV fluids. Remains on DuoNeb inhalations, Symbicort, IV Solu-Medrol. Computed tomography scan of the thoracic spine reveals an irregular heterogenous soft tissue mass measuring up to 5.3 cm within the medial aspect of the right upper lobe. This demonstrates destructive soft tissue involvement in the right lateral aspects of T2 and T3 vertebral bodies. Mild retropulsion of 2 mm of the posterior endplate of the T3 vertebral body causing a mild spinal canal stenosis. Additional spiculated 6 mm nodular density in the lateral right upper lobe. Findings are considered malignancy until proven otherwise. She was seen by orthopedics and no plans for surgical intervention. Objective - Vital Signs Vital signs: Vital Signs Temp 97.5 F L 11/10/22 06:58 Pulse 88 11/10/22 12:10 Resp 18 11/10/22 06:58 BP 115/75 11/10/22 06:58 Pulse Ox 95 11/10/22 08:47 FiO2 Intake & Output 11/09/22 11/10/22 11/10/22 18:59 06:59 18:59 Intake Total 280 Balance 280 Weight 49.26 kg Intake: IV 20 Invasive Line 1 20 Oral 260 Other: # Voids 2 - Exam GENERAL EXAM: Alert, oriented, very pleasant 82-year-old female, on room air, fairly comfortable in no apparent distress. HEAD: Normocephalic. EYES: Normal reaction of pupils, equal size. NOSE: Clear with pink turbinates. THROAT: No erythema or exudates. NECK: No masses, no JVD. CHEST: No chest wall deformity. LUNGS: Equal air entry with end expiratory wheeze, diminished. CVS: S1 and S2 normal with no audible murmur, regular rhythm. ABDOMEN: No hepatosplenomegaly, normal bowel sounds, no guarding or rigidity. SPINE: No scoliosis or deformity SKIN: No rashes CENTRAL NERVOUS SYSTEM: No focal deficits, tone is normal in all 4 extremities. EXTREMITIES: There is no peripheral edema. No clubbing, no cyanosis. Peripheral pulses are intact. - Labs CBC & Chem 7: 11/09/22 07:12 11/09/22 07:12 Assessment and Plan Assessment: Acute back pain, thoracic spine x-ray reveals superior endplate compression at T9. Computed tomography scan of the thoracic spine reveals an irregular heterogenous soft tissue mass measuring up to 5.3 cm within the medial aspect of the right upper lobe. This demonstrates destructive soft tissue involvement in the right lateral aspects of T2 and T3 vertebral bodies. Mild retropulsion of 2 mm of the posterior endplate of the T3 vertebral body causing a mild spinal canal stenosis. Additional spiculated 6 mm nodular density in the lateral right upper lobe. Findings are considered malignancy until proven otherwise. She was seen by orthopedics and no plans for surgical intervention. Acute exacerbation of chronic obstructive pulmonary disease Former smoker Coronary artery disease with previous stent placement Peripheral vascular disease with previous stent placements Hyperlipidemia Plan: The patient was seen and evaluated Computed tomography scan, labs and medications reviewed Orthopedics have no plans for surgical intervention Cleared for discharge from the pulmonary standpoint Recommend the outpatient PET scan Continue Symbicort, DuoNeb inhalations, steroids Follow up in our office in 1 week I have personally seen and examined the patient, performed the documentation and the assessment and plan as written. Number of minutes spent on the visit: 10.
[2022-11-10] MEDS: ATORVASTATIN 40 MG TAB PO SCH (20:11)
--- NOTE | 2022-11-11 00:10 | P.PN ---
Subjective Progress Note Date: 11/10/22 Patient is a 82-year-old female with known history of COPD, prior history of smoking, peripheral vascular disease, coronary arteries with history of stent placement presents to ER with complaints of back pain mainly in the thoracic vertebral region. 11/10/2022 Patient is currently sitting in the bed. Awake alert and oriented. Breathing status is much improved. Currently room air. Patient is being continued on IV Solu-Medrol, Symbicort and DuoNebs. CT of the thoracic spine done on 11/09/2022 showed irregular heterogenous soft tissue mass measuring up to 5.3 cm within the medial aspect of the right upper lobe. This demonstrates a destructive soft tissue involvement of the right lateral aspect of the T2 and T3 vertebral bodies. Mild retropulsion of 2 mm of the posterior endplate of the T3 vertebral body causing at least mild spinal canal stenosis. At this point spiculated 6 mm nodular density within the lateral right upper lobe. Findings are considered malignancy until proven otherwise. Chronic appearing anterior wedge compression deformity of the T2 vertebral body with approximately 25% height loss and no retropulsion. Trace bilateral pleural effusions. Laboratory reviewed from 11/09/2022. Current medications reviewed. Objective - Vital Signs Vital signs: Vital Signs Temp 97.5 F L 11/10/22 06:58 Pulse 88 11/10/22 12:10 Resp 18 11/10/22 06:58 BP 115/75 11/10/22 06:58 Pulse Ox 95 11/10/22 08:47 FiO2 Intake & Output 11/09/22 11/10/22 11/10/22 18:59 06:59 18:59 Intake Total 280 Balance 280 Weight 49.26 kg Intake: IV 20 Invasive Line 1 20 Oral 260 Other: # Voids 2 - Exam PHYSICAL EXAMINATION: Patient is lying in the bed comfortably, no acute distress, awake alert and oriented.. HEENT: Normocephalic. Neck is supple. Pupils reactive. Nostrils clear. Oral cavity is moist. Neck reveals no JVD, carotid bruits, or thyromegaly. CHEST EXAMINATION: Trachea is central. Symmetrical expansion. Lung preston clear to auscultation and percussion. Bibasilar diminished sounds. CARDIAC: Normal S1, S2 with no gallops. No murmurs ABDOMEN: Soft. Bowel sounds present. Nontender. No organomegaly. No abdominal bruits. Extremities: reveal no edema. No clubbing or cyanosis Neurologically awake, alert, oriented x3 with well-coordinated movements. No focal deficits noted Skin: No rash or skin lesions. Psychiatric: Coperative. Nonsuicidal, Musculoskeletal: No joint swelling or deformity. Normal range of motion. - Labs CBC & Chem 7: 11/09/22 07:12 11/09/22 07:12 Assessment and Plan Assessment: Acute upper back pain in the thoracic region. CT of the thoracic spine showed heterogeneous soft tissue mass measuring up to 5.3 cm within the medial aspect of the right upper lobe with destructive soft tissue involvement in the right lateral aspect of the T2 and T3 vertebral bodies. And additional 6 mm nodular density in the lateral right upper lobe. Findings highly suspicious for malignancy. Acute COPD exacerbation Prior history of smoking Coronary artery with history of stent placement Peripheral vascular disease and previous history of stent placement Hyperlipidemia GI and DVT prophylaxis Plan: Patient will be continued on IV Solu-Medrol, DuoNebs and Symbicort. Solu-Medrol changed to prednisone 30 mg daily. Titrate down oxygen to room air. Patient was seen by orthopedic surgery and recommended no surgical room at this time. Will consult oncology for further evaluation of the right upper lobe mass. Patient does not want to proceed for any treatment if it turns out to be malignancy. Continue with pain management Prognosis is guarded at this time. Pulmonary and orthopedic surgery and vas cular surgery is on board. Time with Patient: Greater than 30
[2022-11-11] MEDS: CALCIUM CARBONATE 500 MG CHEWABLE PO PRN (06:05)
[2022-11-11] MEDS: HYDROmorphone 0.5 MG/0.5 ML SYRINGE IVP PRN ×2 (06:06→18:48)
[2022-11-11] MEDS: PANTOPRAZOLE 40 MG TABLET PO SCH (06:06)
[2022-11-11] MEDS: SYMBICORT 160-4.5 MCG INHALER INHALATION SCH ×2 (07:41→20:29)
[2022-11-11] MEDS: IPRATROPIUM-ALBUTEROL 3 ML NEB INHALATION SCH ×4 (07:41→20:29)
[2022-11-11] MEDS: CLOPIDOGREL 75 MG TAB PO SCH (09:04)
[2022-11-11] MEDS: predniSONE 10 MG TAB PO SCH (09:04)
[2022-11-11] MEDS: ASPIRIN 81 MG PO SCH (09:04)
[2022-11-11] MEDS: ISOSORBIDE MONONITRATE ER 30 MG TAB.ER.24H PO SCH (09:04)
[2022-11-11 10:53] LABS: HCT 39.5 % (37.2-46.3); HGB 12.5 d/dL (12.0-15.0); MCH 26.1 pg (27.0-32.0); MCHC 31.6 d/dL (32.0-37.0); MCV 82.5 FL (80.0-97.0); Mean Platelet Volume 11.3 FL (9.5-12.2); NRBC Per 100 WBC 0 X 10*3/uL (0.00-0.01); Platelet Count 293 X 10*3/uL (140-440); RBC 4.79 X 10*6/uL (4.10-5.20); RDW 14.6 % (11.5-14.5); WBC 14.71 X 10*3/uL (4.50-10.00)
[2022-11-11 11:19] LABS: BUN/Creat Ratio 52.33 Ratio (12.00-20.00); Blood Urea Nitrogen 31.4 mg/dL (9.0-27.0); Calcium 9.3 mg/dL (8.7-10.3); Carbon Dioxide 27.2 mmol/L (21.6-31.8); Chloride 104 mmol/L (96-109); Glucose 121 mg/dL (70-110); Potassium 4.1 mmol/L (3.5-5.5); Sodium 142 mmol/L (135-145)
[2022-11-11 11:57] LABS: Basophils # (A) 0.02 X 10*3/uL (0.00-0.10); Basophils % (A) 0.1 %; Eosinophils # (A) 0.01 X 10*3/uL (0.04-0.35); Eosinophils % (A) 0.1 %; Lymphocytes # (A) 1.59 X 10*3/uL (0.90-5.00); Lymphocytes % (A) 10.8 %; Monocytes % (A) 10.9 %; Neutrophils # (A) 11.42 X 10*3/uL (1.80-7.70); Neutrophils % (A) 77.6 %; RBC Morphology Normal (Normal)
--- NOTE | 2022-11-11 14:30 | P.PN ---
Subjective Progress Note Date: 11/11/22 This is a pleasant 82-year-old female patient with a known history of chronic obstructive pulmonary disease, former smoker, peripheral vascular disease, coronary artery disease with previous stent placement who presented here to the emergency room early this morning with complaints of back pain. Still having issues with shortness of breath cough and congestion. When she coughs her pain is much worse. Chest x-ray reveals some vascular congestion. White count 10.2. Hemoglobin 13.4. Sodium 137. Potassium 4.1. Bicarb 25. BUN 38. Creatinine 0.72. Glucose 150. Troponin negative times one. ProBNP 405. Influenza screen negative. COVID-19 screen negative. RSV screen negative. Pro-calcitonin is pending. She's been initiated and DuoNeb inhalations, Symbicort, prednisone. He is seen today in the emergency department. Sitting up in a stretcher. Awake and alert in no acute distress. She is having some ongoing issues with her back even upon simple movement. He is maintaining good O2 saturations in the mid to upper 90s on room air. Afebrile. Hemodynamically stable. The patient is seen today 11/09/2022 follow-up in the emergency department. She is sitting up in the stretcher. Still having some significant back pain. Denies any worsening shortness of breath, cough or congestion. Tinnitus to maintain good O2 saturations in the upper 90s on room air. She's afebrile. White count 16.1. Hemoglobin 12.9. Platelets 281. Sodium 139. Potassium 4.5. Bicarb 22. BUN 25. Creatinine 0.7. Glucose 151. Troponin negative 2. Cervical spine chest x-ray revealed degenerative disc changes throughout the cervical spine. Mild retro-listhesis on C4 and C5. X-rays of the thoracic spine revealed superior endplate compression change at T9 there is exaggeration of the thoracic kyphosis. Orthopedics have been consulted. She is continued on DuoNeb inhalations, Symbicort, Solu-Medrol. Dilaudid alternating with Lyons for pain control. The patient is seen today 11/10/2022 in follow-up on the regular medical floor. She is currently resting comfortably in bed. Awake and alert in no acute distress. Breathing easier today compared to yesterday. She is maintaining good O2 saturations in the 90s on room air. No IV fluids. Remains on DuoNeb inhalations, Symbicort, IV Solu-Medrol. Computed tomography scan of the thoracic spine reveals an irregular heterogenous soft tissue mass measuring up to 5.3 cm within the medial aspect of the right upper lobe. This demonstrates destructive soft tissue involvement in the right lateral aspects of T2 and T3 vertebral bodies. Mild retropulsion of 2 mm of the posterior endplate of the T3 vertebral body causing a mild spinal canal stenosis. Additional spiculated 6 mm nodular density in the lateral right upper lobe. Findings are considered malignancy until proven otherwise. She was seen by orthopedics and no plans for surgical intervention. The patient is seen today 11/11/2022 in follow-up on the regular medical floor. She is currently resting fairly comfortably in bed. Awake and alert in no acute distress. She is maintaining O2 saturations in the 90s on room air. No IV fluids. No worsening shortness of breath, cough or congestion. No hemoptysis. Her back discomfort is better controlled on Lyons alternating with Dilaudid. She is continued on DuoNeb inhalations, Symbicort, Medrol Dosepak. White count 14.7. Hemoglobin 12.5. Platelets 293. Sodium 142. Potassium 4.1. Bicarb 27. BUN 31. Creatinine 0.6. Glucose 121. Objective - Vital Signs Vital signs: Vital Signs Temp 98.2 F 11/11/22 06:42 Pulse 76 11/11/22 11:23 Resp 16 11/11/22 09:01 BP 106/64 11/11/22 06:42 Pulse Ox 95 11/11/22 02:11 FiO2 Intake & Output 11/10/22 11/11/22 11/11/22 18:59 06:59 18:59 Other: Voiding Method Toilet Toilet # Voids 4 2 - Exam GENERAL EXAM: Alert, oriented, thin 82-year-old female, on room air, fairly comfortable in no apparent distress. HEAD: Normocephalic. EYES: Normal reaction of pupils, equal size. NOSE: Clear with pink turbinates. THROAT: No erythema or exudates. NECK: No masses, no JVD. CHEST: No chest wall deformity. LUNGS: Equal air entry with end expiratory wheeze, diminished. CVS: S1 and S2 normal with no audible murmur, regular rhythm. ABDOMEN: No hepatosplenomegaly, normal bowel sounds, no guarding or rigidity. SPINE: No scoliosis or deformity SKIN: No rashes CENTRAL NERVOUS SYSTEM: No focal deficits, tone is normal in all 4 extremities. EXTREMITIES: There is no peripheral edema. No clubbing, no cyanosis. Peripheral pulses are intact. - Labs CBC & Chem 7: 11/11/22 07:16 11/11/22 07:16 Labs: Abnormal Lab Results - Last 24 Hours (Table) 11/11/22 11/11/22 Range/Units 07:16 07:16 WBC 14.71 H (4.50-10.00) X 10*3/uL MCH 26.1 L (27.0-32.0) pg MCHC 31.6 L (32.0-37.0) d/dL RDW 14.6 H (11.5-14.5) % Neutrophils # 11.42 H (1.80-7.70) X 10*3/uL Monocytes # 1.60 H (0.20-1.00) X 10*3/uL Eosinophils # 0.01 L (0.04-0.35) X 10*3/uL BUN 31.4 H (9.0-27.0) mg/dL BUN/Creatinine Ratio 52.33 H (12.00-20.00) Ratio Glucose 121 H (70-110) mg/dL Assessment and Plan Assessment: Acute back pain, thoracic spine x-ray reveals superior endplate compression at T9. Computed tomography scan of the thoracic spine reveals an irregular heterogenous soft tissue mass measuring up to 5.3 cm within the medial aspect of the right upper lobe. This demonstrates destructive soft tissue involvement in the right lateral aspects of T2 and T3 vertebral bodies. Mild retropulsion of 2 mm of the posterior endplate of the T3 vertebral body causing a mild spinal canal stenosis. Additional spiculated 6 mm nodular density in the lateral right upper lobe. Findings are considered malignancy until proven otherwise. She was seen by orthopedics and no plans for surgical intervention. Acute exacerbation of chronic obstructive pulmonary disease Former smoker Coronary artery disease with previous stent placement Peripheral vascular disease with previous stent placements Hyperlipidemia Plan: The patient was seen and evaluated Labs and medications reviewed Cleared for discharge from the pulmonary standpoint We will plan for outpatient PET scan Continue Symbicort, DuoNeb inhalations, steroids Nebulizer has been ordered Follow up in our office in 1 week I have personally seen and examined the patient, performed the documentation and the assessment and plan as written. Number of minutes spent on the visit: 10.
--- NOTE | 2022-11-11 15:08 | P.PN ---
Subjective Progress Note Date: 11/11/22 Principal diagnosis: Thoracic back pain Patient was evaluated today at bedside, she is resting comfortably. She continues to have discomfort in the thoracic spine mainly with movement. Pain medication is helping at this time. Patient denies any new onset weakness in the bilateral upper and lower extremities, she denies any bowel or bladder changes at this time. She denies any numbness or tingling to the perineal her genital region. Objective - Vital Signs Vital signs: Vital Signs Temp 97.8 F 11/11/22 14:00 Pulse 78 11/11/22 14:00 Resp 16 11/11/22 14:00 BP 102/68 11/11/22 14:00 Pulse Ox 91 L 11/11/22 14:00 FiO2 Intake & Output 11/10/22 11/11/22 11/11/22 18:59 06:59 18:59 Intake Total 200 Balance 200 Intake: Oral 200 Other: Voiding Method Toilet Toilet # Voids 4 2 - Exam Gen: AOx3, NAD VSS stable at this time Kyphotic deformity present Integument: No obvious open lesions or sores are visualized throughout the cervical, thoracic or lumbar spine Palpation: No tenderness with palpation of the midline and paraspinal region of the cervical or lumbar area. She is very tender in the midline and paraspinal region to the mid thoracic spine ROM: Full painless range of motion in all major muscle groups of the bilateral upper and lower extremities, no focal deficits appreciated Sensory Exam: Senory exam to light touch is intact C5-T1 Senosry exam to light touch is intact L2-S1 Motor: 4+/5 strength appreciated in the bilateral lower extremities with hip flexion, knee extension, knee flexion, plantar flexion, dorsiflexion, EHL, FHL 4-/5 strength appreciated in the bilateral upper extremities with shoulder elevation and shoulder abduction 4/5 strength appreciated in the bilateral upper extremities with elbow extension, elbow flexion, wrist extension, wrist flexion, ap operator Reflexes: 2/4 in all UE and LE Negative Elizabeth's bilaterally Negative Babinski bilaterally Negative clonus bilaterally Special Test: Negative straight leg raise bilaterally - Labs CBC & Chem 7: 11/11/22 07:16 11/11/22 07:16 Labs: Abnormal Lab Results - Last 24 Hours (Table) 11/11/22 11/11/22 Range/Units 07:16 07:16 WBC 14.71 H (4.50-10.00) X 10*3/uL MCH 26.1 L (27.0-32.0) pg MCHC 31.6 L (32.0-37.0) d/dL RDW 14.6 H (11.5-14.5) % Neutrophils # 11.42 H (1.80-7.70) X 10*3/uL Monocytes # 1.60 H (0.20-1.00) X 10*3/uL Eosinophils # 0.01 L (0.04-0.35) X 10*3/uL BUN 31.4 H (9.0-27.0) mg/dL BUN/Creatinine Ratio 52.33 H (12.00-20.00) Ratio Glucose 121 H (70-110) mg/dL Assessment and Plan Assessment: Thoracic back pain Right lung mass T2 and T3 vertebral body fracture, pathologic Chronic T10 and T12 vertebral compression fracture Multilevel cervical spondylosis Scoliosis Kyphosis Other medical comorbidities Plan: Imaging: Images and reports were reviewed of the thoracic computed tomography scan. Right lung mass was noted in the areas of T1 through T4. There is soft tissue involvement of both T2 and T3 vertebral body. Wedge deformities were also noted at the T10 and T12 representing chronic compression fracture. Plan: I was able to discuss the case, this including both physical exam findings and imaging studies might attending Dr. Breaux. Recommending no emergent orthopedic spine surgical intervention at this time Pain control, okay to utilize Tylenol, NSAIDs and low-dose narcotics We discussed the possibility of a brace, patient would like to hold off on this at this time. DVT prophylaxis per primary medical service Weight-bear as tolerated with walker, avoid lifting, twisting, bending at this point Other medical lab technologist and recommendations appreciated Patient follow-up as needed at this time, please contact her service with any further questions regarding this patient Time with Patient: Less than 30
--- NOTE | 2022-11-11 17:17 | P.CONS ---
History of Present Illness - Reason for Consult Consult date: 11/11/22 lung mass Requesting physician: Terell Dickson - Chief Complaint SOB, back pain - History of Present Illness Patient is a 82-year-old female with a significant history of COPD. We were consulted for a right upper lobe lung mass. Patient presented to the ER for shortness of breath, cough and upper back pain. Patient states symptoms have been ongoing for approximately 1 month. Upon presentation chest x-ray showed vascular congestion. CT thoracic spine revealed irregular heterogeneous soft tissue mass measuring up to 5.3 cm within the medial aspect of the right upper lobe area and this demonstrates destructive soft tissue involvement of the right lateral aspects of the T2 and T3 vertebral bodies. Mild retropulsion of 2 mm of the posterior endplate of T3 vertebral body causing mild spinal canal stenosis. Additional spiculated 6 mm nodular density within the lateral right upper lobe and trace bilateral pleural effusions. Patient reports she was a 50 pack years smoker but no longer smokes. She has no personal history of cancer but her father did have an unknown cancer. Patient reports approximately 20 pound weight loss over the last 6 months. Denies night sweats. Review of Systems 10 point ROS is negative except as stated in the HPI Past Medical History Past Medical History: Chest Pain / Angina, COPD, Vascular Disorder Additional Past Medical History / Comment(s): pre diabetic, lower back pain,constipation, History of Any Multi-Drug Resistant Organisms: None Reported Past Surgical History: Heart Catheterization With Stent, Hysterectomy Additional Past Surgical History / Comment(s): neck surgery, cataract surgery, colonoscopy Past Anesthesia/Blood Transfusion Reactions: No Reported Reaction Date of Last Stent Placement:: 09/14/22 Past Psychological History: No Psychological Hx Reported Smoking Status: Former smoker Past Alcohol Use History: None Reported Past Drug Use History: None Reported Medications and Allergies Home Medications Medication Instructions Recorded Confirmed Type Atorvastatin [Lipitor] 40 mg PO HS 07/20/22 11/08/22 History Fluticasone/Umeclidin/Vilanter 1 puff INHALATION RT-DAILY 07/20/22 11/08/22 History [Trelealicia Ellipta 100-62.5-25] Clopidogrel [Plavix] 75 mg PO DAILY 09/13/22 11/08/22 History Isosorbide Mononitrate ER [Imdur] 30 mg PO DAILY 09/13/22 11/08/22 History Albuterol Sulfate [Albuterol 2 puff PO RT-Q6H PRN 11/08/22 11/08/22 History Sulfate Hfa] Allergies Allergy/AdvReac Type Severity Reaction Status Date / Time No Known Allergies Allergy Verified 11/08/22 10:57 Physical Exam Vitals: Vital Signs Temp Pulse Pulse Resp BP BP Pulse Ox 11/11/22 15:17 76 11/11/22 15:09 80 11/11/22 14:00 97.8 F 78 16 102/68 91 L 11/11/22 11:23 76 11/11/22 11:16 72 11/11/22 09:01 65 16 11/11/22 07:49 84 11/11/22 07:42 80 11/11/22 06:42 98.2 F 65 16 106/64 11/11/22 02:11 97.7 F 94 18 121/85 95 11/10/22 21:52 92 11/10/22 21:37 96 11/10/22 19:15 97.7 F 95 18 103/73 94 L Intake and Output 11/11/22 11/11/22 11/11/22 06:59 14:59 22:59 Intake Total 200 Balance 200 Intake: Oral 200 Other: Voiding Method Toilet # Voids 2 - Constitutional General appearance: no acute distress, thin - EENT Eyes: anicteric sclerae, EOMI ENT: hearing grossly normal - Respiratory course throughout - Cardiovascular Rhythm: regular Heart sounds: normal: S1, S2 Abnormal Heart Sounds: no systolic murmur, no diastolic murmur, no rub, no S3 Gallop, no S4 Gallop, no click, no other leg Peripheral Edema: bilateral: None - Gastrointestinal General gastrointestinal: soft, no tenderness - Integumentary Integumentary: no cyanotic - Neurologic grossly intact - Musculoskeletal Musculoskeletal: strength equal bilaterally - Psychiatric Psychiatric: A&O x's 3, appropriate affect, intact judgment & insight Results CBC & Chem 7: 11/11/22 07:16 11/11/22 07:16 Labs: Abnormal Lab Results - Last 24 Hours (Table) 11/11/22 11/11/22 Range/Units 07:16 07:16 WBC 14.71 H (4.50-10.00) X 10*3/uL MCH 26.1 L (27.0-32.0) pg MCHC 31.6 L (32.0-37.0) d/dL RDW 14.6 H (11.5-14.5) % Neutrophils # 11.42 H (1.80-7.70) X 10*3/uL Monocytes # 1.60 H (0.20-1.00) X 10*3/uL Eosinophils # 0.01 L (0.04-0.35) X 10*3/uL BUN 31.4 H (9.0-27.0) mg/dL BUN/Creatinine Ratio 52.33 H (12.00-20.00) Ratio Glucose 121 H (70-110) mg/dL Comments: thoracic CT reviewed Chest x-ray: report reviewed Assessment and Plan (1) Lung mass Current Visit: Yes Status: Acute Priority: High Code(s): R91.8 - OTHER NONSPECIFIC ABNORMAL FINDING OF LUNG FIELD SNOMED Code(s): 238907195 Plan: Lung Mass: -CT thoracic spine revealed irregular heterogeneous soft tissue mass measuring up to 5.3 cm within the medial aspect of the right upper lobe area and this demonstrates destructive soft tissue involvement of the right lateral aspects of the T2 and T3 vertebral bodies. Mild retropulsion of 2 mm of the posterior endplate of T3 vertebral body causing mild spinal canal stenosis. Additional spiculated 6 mm nodular density within the lateral right upper lobe and trace bilateral pleural effusions. -She has hx of 50 pack years smoker and has had unintentional weight loss. Discussed with patient and daughter results of CT scan and concerns for malignancy. -Discussed case with pulmonology team. They plan to schedule PET scan outpatient prior to obtaining biopsy, to ascertain best site for biopsy. -Brain MRI ordered for staging. -Will schedule clinic follow-up once biopsy is obtained to discuss testing results and treatment options -The above findings and plan was discussed with the patient and family in detail and they're agreeable with plan of care attests: I performed H&P and developed impression and plan of care for patient, discussed with dictator. I agree with dictated note, documented as a scribe
[2022-11-11] MEDS: ATORVASTATIN 40 MG TAB PO SCH (22:09)
--- NOTE | 2022-11-12 01:14 | P.PN ---
Subjective Progress Note Date: 11/11/22 Patient is a 82-year-old female with known history of COPD, prior history of smoking, peripheral vascular disease, coronary arteries with history of stent placement presents to ER with complaints of back pain mainly in the thoracic vertebral region. 11/10/2022 Patient is currently sitting in the bed. Awake alert and oriented. Breathing status is much improved. Currently room air. Patient is being continued on IV Solu-Medrol, Symbicort and DuoNebs. CT of the thoracic spine done on 11/09/2022 showed irregular heterogenous soft tissue mass measuring up to 5.3 cm within the medial aspect of the right upper lobe. This demonstrates a destructive soft tissue involvement of the right lateral aspect of the T2 and T3 vertebral bodies. Mild retropulsion of 2 mm of the posterior endplate of the T3 vertebral body causing at least mild spinal canal stenosis. At this point spiculated 6 mm nodular density within the lateral right upper lobe. Findings are considered malignancy until proven otherwise. Chronic appearing anterior wedge compression deformity of the T2 vertebral body with approximately 25% height loss and no retropulsion. Trace bilateral pleural effusions. Laboratory reviewed from 11/09/2022. Current medications reviewed. 11/11/2072 Patient is seen in evaluation and follow-up this morning being followed by multiple medical consultations. Patient has been transitioned to oral steroids and maintained on DuoNeb treatments and Symbicort. Patient was evaluated by orthopedics with no plans for surgical intervention recommending outpatient follow-up. Patient was found to have a density within the right upper lobe and oncology was consulted and has discussed some possible treatment options although further testing is needed as patient will need an outpatient PET scan along with biopsy. Patient will receive an MRI of the brain to assess for any metastasis. Review of systems: Constitutional: No reports of fatigue, fever, or chills Cardiovascular: No reports of chest pain or palpitations Respiratory: No reports of worsening shortness of breath or cough GI: No reports of nausea, vomiting, or diarrhea : No reports of dysuria or retention Neurovascular: No reports of weakness or numbness, reports continued upper back pain but somewhat improved All medications have been reviewed PHYSICAL EXAMINATION: Patient is lying in the bed , no acute distress, awake alert and oriented.. Thin built, elderly appearing Tearful on exam HEENT: Normocephalic. Neck is supple. Pupils reactive. Nostrils clear. Oral cavity is moist. Neck reveals no JVD, carotid bruits, or thyromegaly. CHEST EXAMINATION: Trachea is central. Symmetrical expansion. Lung preston clear to auscultation and percussion. Bibasilar diminished sounds. CARDIAC: Normal S1, S2 with no gallops. No murmurs ABDOMEN: Soft. Bowel sounds present. Nontender. No organomegaly. No abdominal bruits. Extremities: reveal no edema. No clubbing or cyanosis Neurologically awake, alert, oriented x3 with well-coordinated movements. No focal deficits noted Skin: No rash or skin lesions. Psychiatric: Cooperative. Non-suicidal, Musculoskeletal: No joint swelling or deformity. Normal range of motion. Assessment: Acute upper back pain in the thoracic region. CT of the thoracic spine showed heterogeneous soft tissue mass measuring up to 5.3 cm within the medial aspect of the right upper lobe with destructive soft tissue involvement in the right lateral aspect of the T2 and T3 vertebral bodies. And additional 6 mm nodular density in the lateral right upper lobe. Findings highly suspicious for malignancy. Outpatient PET scan being scheduled Acute COPD exacerbation Prior history of smoking Coronary artery with history of stent placement Peripheral vascular disease and previous history of stent placement Hyperlipidemia GI and DVT prophylaxis No code Plan: Patient will be continued on , DuoNebs and Symbicort. Solu-Medrol changed to prednisone 30 mg daily. And patient will continue a prednisone taper on discharge with outpatient follow-up with pulmonary Oncology was consulted and has discussed treatment options and plans moving forward and ordered MRI of the brain to assess for any lesions and patient is agreeable Patient will need outpatient PET scan along with biopsy. Per patient, does not desire any treatment or surgical intervention if there is malignancy Titrate down oxygen to room air. Encouraged increased activity as tolerated Continue with pain management Prognosis is guarded at this time. Patient had an MRI of the brain tomorrow per corrosion control technician with probable discharge after Patient to follow-up with primary care provider as well as consultations outpatient. Outpatient PET scan being scheduled per oncology The impression and plan of care has been dictated by Dana Gray, Nurse Practitioner as directed. Dr. Randolph MD I have performed a history and examination and MDM of this patient, discussed the same with the dictator, and agree with the dictator's assessment and plan as written ,documented as a scribe. Based on total visit time, I have performed more than 50% of the visit. Objective - Vital Signs Vital signs: Vital Signs Temp 97.8 F 11/11/22 14:00 Pulse 76 11/11/22 15:17 Resp 16 11/11/22 14:00 BP 102/68 11/11/22 14:00 Pulse Ox 91 L 11/11/22 14:00 FiO2 Intake & Output 11/10/22 11/11/22 11/11/22 18:59 06:59 18:59 Intake Total 200 Balance 200 Intake: Oral 200 Other: Voiding Method Toilet Toilet # Voids 4 2 - Labs CBC & Chem 7: 11/11/22 07:16 11/11/22 07:16 Labs: Abnormal Lab Results - Last 24 Hours (Table) 11/11/22 11/11/22 Range/Units 07:16 07:16 WBC 14.71 H (4.50-10.00) X 10*3/uL MCH 26.1 L (27.0-32.0) pg MCHC 31.6 L (32.0-37.0) d/dL RDW 14.6 H (11.5-14.5) % Neutrophils # 11.42 H (1.80-7.70) X 10*3/uL Monocytes # 1.60 H (0.20-1.00) X 10*3/uL Eosinophils # 0.01 L (0.04-0.35) X 10*3/uL BUN 31.4 H (9.0-27.0) mg/dL BUN/Creatinine Ratio 52.33 H (12.00-20.00) Ratio Glucose 121 H (70-110) mg/dL
[2022-11-12] MEDS: HYDROmorphone 0.5 MG/0.5 ML SYRINGE IVP PRN ×3 (03:24→14:18)
[2022-11-12] MEDS: PANTOPRAZOLE 40 MG TABLET PO SCH (06:45)
[2022-11-12] MEDS: IPRATROPIUM-ALBUTEROL 3 ML NEB INHALATION SCH ×3 (07:59→15:55)
[2022-11-12] MEDS: SYMBICORT 160-4.5 MCG INHALER INHALATION SCH (07:59)
[2022-11-12] MEDS: ISOSORBIDE MONONITRATE ER 30 MG TAB.ER.24H PO SCH (08:36)
[2022-11-12] MEDS: CLOPIDOGREL 75 MG TAB PO SCH (08:36)
[2022-11-12] MEDS: ASPIRIN 81 MG PO SCH (08:36)
[2022-11-12] MEDS ORDERED: methylPREDNISolone 4 MG TAB TAPER PO SCH (09:00)
[2022-11-12] MEDS: HYDROcodone/APAP 5-325MG 1 EACH TAB PO PRN ×2 (10:35→15:50)
[2022-11-12] MEDS ORDERED: MAGNESIUM HYDROXIDE 2,400 MG/30 ML CUP PO PRN (10:42)
--- NOTE | 2022-11-12 12:31 | P.PN ---
Subjective Progress Note Date: 11/12/22 This is a pleasant 82-year-old female patient with a known history of chronic obstructive pulmonary disease, former smoker, peripheral vascular disease, coronary artery disease with previous stent placement who presented here to the emergency room early this morning with complaints of back pain. Still having issues with shortness of breath cough and congestion. When she coughs her pain is much worse. Chest x-ray reveals some vascular congestion. White count 10.2. Hemoglobin 13.4. Sodium 137. Potassium 4.1. Bicarb 25. BUN 38. Creatinine 0.72. Glucose 150. Troponin negative times one. ProBNP 405. Influenza screen negative. COVID-19 screen negative. RSV screen negative. Pro-calcitonin is pending. She's been initiated and DuoNeb inhalations, Symbicort, prednisone. He is seen today in the emergency department. Sitting up in a stretcher. Awake and alert in no acute distress. She is having some ongoing issues with her back even upon simple movement. He is maintaining good O2 saturations in the mid to upper 90s on room air. Afebrile. Hemodynamically stable. The patient is seen today 11/09/2022 follow-up in the emergency department. She is sitting up in the stretcher. Still having some significant back pain. Denies any worsening shortness of breath, cough or congestion. Tinnitus to maintain good O2 saturations in the upper 90s on room air. She's afebrile. White count 16.1. Hemoglobin 12.9. Platelets 281. Sodium 139. Potassium 4.5. Bicarb 22. BUN 25. Creatinine 0.7. Glucose 151. Troponin negative 2. Cervical spine chest x-ray revealed degenerative disc changes throughout the cervical spine. Mild retro-listhesis on C4 and C5. X-rays of the thoracic spine revealed superior endplate compression change at T9 there is exaggeration of the thoracic kyphosis. Orthopedics have been consulted. She is continued on DuoNeb inhalations, Symbicort, Solu-Medrol. Dilaudid alternating with [place] for pain control. The patient is seen today 11/10/2022 in follow-up on the regular medical floor. She is currently resting comfortably in bed. Awake and alert in no acute distress. Breathing easier today compared to yesterday. She is maintaining good O2 saturations in the 90s on room air. No IV fluids. Remains on DuoNeb inhalations, Symbicort, IV Solu-Medrol. Computed tomography scan of the thoracic spine reveals an irregular heterogenous soft tissue mass measuring up to 5.3 cm within the medial aspect of the right upper lobe. This demonstrates destructive soft tissue involvement in the right lateral aspects of T2 and T3 vertebral bodies. Mild retropulsion of 2 mm of the posterior endplate of the T3 vertebral body causing a mild spinal canal stenosis. Additional spiculated 6 mm nodular density in the lateral right upper lobe. Findings are considered malignancy until proven otherwise. She was seen by orthopedics and no plans for surgical intervention. The patient is seen today 11/11/2022 in follow-up on the regular medical floor. She is currently resting fairly comfortably in bed. Awake and alert in no acute distress. She is maintaining O2 saturations in the 90s on room air. No IV fluids. No worsening shortness of breath, cough or congestion. No hemoptysis. Her back discomfort is better controlled on [place] alternating with Dilaudid. She is continued on DuoNeb inhalations, Symbicort, Medrol Dosepak. White count 14.7. Hemoglobin 12.5. Platelets 293. Sodium 142. Potassium 4.1. Bicarb 27. BUN 31. Creatinine 0.6. Glucose 121. The patient is seen today 11/12/2022 in follow-up on the regular medical floor. She is currently resting comfortably in bed. Awake and alert in no acute distress. Maintaining O2 saturations in the 90s on room air. She is continued on DuoNeb inhalations, Symbicort, Medrol Dosepak. Awaiting MRI of the brain. Objective - Vital Signs Vital signs: Vital Signs Temp 97.7 F 11/12/22 08:07 Pulse 68 11/12/22 12:06 Resp 20 11/12/22 11:04 BP 98/63 11/12/22 08:07 Pulse Ox 93 L 11/12/22 08:07 FiO2 Intake & Output 11/11/22 11/12/22 11/12/22 18:59 06:59 18:59 Intake Total 200 Balance 200 Intake: Oral 200 Other: Voiding Method Toilet Toilet # Voids 2 - Exam GENERAL EXAM: Alert, frail 82-year-old female, on room air, comfortable in no apparent distress. HEAD: Normocephalic. EYES: Normal reaction of pupils, equal size. NOSE: Clear with pink turbinates. THROAT: No erythema or exudates. NECK: No masses, no JVD. CHEST: No chest wall deformity. LUNGS: Equal air entry with end expiratory wheeze, diminished. CVS: S1 and S2 normal with no audible murmur, regular rhythm. ABDOMEN: No hepatosplenomegaly, normal bowel sounds, no guarding or rigidity. SPINE: No scoliosis or deformity SKIN: No rashes CENTRAL NERVOUS SYSTEM: No focal deficits, tone is normal in all 4 extremities. EXTREMITIES: There is no peripheral edema. No clubbing, no cyanosis. Peripheral pulses are intact. - Labs CBC & Chem 7: 11/11/22 07:16 11/11/22 07:16 Assessment and Plan Assessment: Acute back pain, thoracic spine x-ray reveals superior endplate compression at T9. Computed tomography scan of the thoracic spine reveals an irregular heterogenous soft tissue mass measuring up to 5.3 cm within the medial aspect of the right upper lobe. This demonstrates destructive soft tissue involvement in the right lateral aspects of T2 and T3 vertebral bodies. Mild retropulsion of 2 mm of the posterior endplate of the T3 vertebral body causing a mild spinal canal stenosis. Additional spiculated 6 mm nodular density in the lateral right upper lobe. Findings are considered malignant until proven otherwise. She was seen by orthopedics and no plans for surgical intervention. MRI of the brain pending. Acute exacerbation of chronic obstructive pulmonary disease Former smoker Coronary artery disease with previous stent placement Peripheral vascular disease with previous stent placements Hyperlipidemia Plan: The patient was seen and evaluated Medications reviewed Awaiting MRI of the brain Cleared for discharge from the pulmonary standpoint Continue Symbicort, DuoNeb inhalations, Medrol Dosepak Nebulizer has been ordered We will plan for outpatient PET scan Follow up in our office in 1 week I have personally seen and examined the patient, performed the documentation and the assessment and plan as written. Number of minutes spent on the visit: 10.
[2022-11-12] MEDS: IOPAMIDOL CONTRAST (ORAL USE) VIAL PO PRN ×2 (14:17→15:15)
[2022-11-12 14:58] VITALS: BP 108/67; PULSE 80; RESP 17; TEMP 98.4
--- NOTE | 2022-11-12 16:19 | CT ---
EXAMINATION TYPE: CT abdomen pelvis w con CT DLP: 566.6 mGycm, Automated exposure control for dose reduction was used. DATE OF EXAM: 11/12/2022 4:12 PM COMPARISON: None CLINICAL INDICATION:Female, 82 years old with history of constipation, abdominal pain; constipation, abdominal pain TECHNIQUE: Axial CT of the abdomen and pelvis. Sagittal and coronal reformats were created on a [employer] workstation. Contrast used:90 mL of Isovue 300 with IV Contrast, (none if empty) Oral contrast used: with Oral Contrast (none if empty) FINDINGS: LOWER CHEST: Streaky atelectasis in the lung bases. ABDOMEN LIVER: Unremarkable GALLBLADDER AND BILE DUCTS: Unremarkable. PANCREAS: Possible tiny cysts versus interdigitating fat head measuring up to 4 mm. SPLEEN: Unremarkable. ADRENAL GLANDS: Nodular thickening of the left adrenal gland likely adenomatous hypertrophy changes. KIDNEYS AND URETERS: No evidence of hydronephrosis or renal calculus. The ureters are unremarkable. Left renal cyst. PELVIS BLADDER: Incompletely distended but grossly unremarkable. REPRODUCTIVE: The uterus is surgically absent. ABDOMEN & PELVIS STOMACH AND BOWEL: No evidence of bowel obstruction. There is a small hiatal hernia. Large stool jairo en throughout the colon. PERITONEUM/RETROPERITONEUM: No evidence of pneumoperitoneum or free fluid. VASCULATURE: Moderate atherosclerotic calcifications are present throughout the abdominal aorta and i ts branches. Measuring up to Infrarenal 2.0 cm saccular aneurysm MUSCULOSKELETAL: No acute osseous abnormalities. Moderate disc degeneration changes are present throu ghout the thoracolumbar spine. Multilevel wedge compression deformities in biconcave deformities. Vac uum disc phenomenon with osteophyte formation and facet joint arthropathy throughout the spine. LYMPH NODES: No gross evidence for lymphadenopathy. SOFT TISSUE/ABDOMINAL WALL: Unremarkable IMPRESSION: 1. Large stool burden throughout the colon. No other acute intra-abdominal process. 2. Small hiatal hernia. 3. Simple appearing left renal cyst. 4. Pancreatic head 4 mm cyst versus interdigitating fat. 5. Infrarenal aortic saccular aneurysm compared to the normal caliber of the aorta measuring up to 2 .0 cm.
--- NOTE | 2022-11-14 14:28 | P.DS ---
Providers Date of admission: 11/08/22 04:46 Expected date of discharge: 11/12/22 Attending physician: Mor Yoder Consults: 11/08/22 04:47 Consult Physician Routine Consulting Provider: Sai Pa Consult Reason/Comments: Your patient. COPD exacerbation Do you want consulting provider notified?: Yes 11/08/22 11:20 Consult Physician Routine Consulting Provider: Robert Olmedo Consult Reason/Comments: chest apin Do you want consulting provider notified?: Yes 11/08/22 12:19 Consult Physician Urgent Consulting Provider: Ketan Breaux Consult Reason/Comments: back pain Do you want consulting provider notified?: Yes 11/10/22 23:47 Consult Physician Routine Consulting Provider: Deniz Fontaine Consult Reason/Comments: Rt upper lobe mass Do you want consulting provider notified?: Yes, Notify in am Primary care physician: Viral Downs [facility] Course: Final diagnosis Acute upper back pain in the thoracic region. CT of the thoracic spine showed heterogeneous soft tissue mass measuring up to 5.3 cm within the medial aspect of the right upper lobe with destructive soft tissue involvement in the right lateral aspect of the T2 and T3 vertebral bodies. And additional 6 mm nodular density in the lateral right upper lobe. Findings highly suspicious for malignancy. Outpatient PET scan being scheduled Acute COPD exacerbation Prior history of smoking Chronic constipation, CT abdomen shows stool burden with no obstruction Coronary artery with history of stent placement Peripheral vascular disease and previous history of stent placement Hyperlipidemia GI and DVT prophylaxis No code Discharge disposition Patient is being discharged in a stable condition with guarded prognosis to home. Patient will follow-up with Dr. Downs in the outpatient setting upon discharge. Patient is to follow-up with oncology along with pulmonary outpatient as scheduled. Patient is having an outpatient PET scheduled by pulmonary Dr. Pa and then will need follow-up to discuss treatment options and results. Total time taken is greater than 35 minutes. Hospital course This is a 82-year-old female who was recently admitted with shortness of breath and back pain in the upper region with COPD exacerbation. Patient was evaluated by orthopedics with no plans for surgical intervention. Patient also underwent CT chest which was suggestive of a heterogenous soft tissue mass measuring up to 5.3 cm within the medial aspect of the right upper lobe with destructive soft tissue involvement in the right lateral aspect of the T2 and T3 vertebral bodies. There was an additional 6 mm nodule density in the lateral right upper lobe. Findings are highly suspicious for malignancy and pulmonary had evaluated the patient recommending outpatient PET scan and possible biopsy. Oncology evaluated the patient as well initiating an MRI of the brain to evaluate for any brain lesions. Patient with significant pain being maintained on Martin is with some relief. Patient also has history of chronic constipation she reports and CT abdomen and pelvis was done with no suspicious findings other than stool burden with no obstruction. Patient was getting lactulose and will be given a prescription for this. Oncology will be calling in following up on the MRI of the brain scheduling as well as follow-up in the outpatient setting. Patient did mention she does not want to pursue surgical intervention or chemo/radiation. Discussing further with her daughter who does want to pursue treatment and patient is completely alert and oriented 3 requesting no CODE STATUS. Discussed with the patient and daughter multiple times regarding decision-making to be dealt with between each other as patient does not want to seek care if the findings are cancer. Currently no reports of chest pain, shortness of breath, or palpitations. Patient is afebrile. No reports of nausea or vomiting and patient is tolerating diet. Patient will be discharged home today. Physical exam: Gen: This is a 82-year-old female who is awake, alert and oriented 3, thin built, elderly appearing HEENT: Head is atraumatic, normocephalic. Pupils equal, round. Sclerae is anicteric. NECK: Supple. No JVD. No lymphadenopathy. No thyromegaly. LUNGS: Diminished breath sounds bilaterally. No wheezes, scattered rhonchi. No intercostal retractions. HEART: Regular rate and rhythm. No murmur. ABDOMEN: Soft. Scaphoid Bowel sounds are present. No masses. No tenderness. EXTREMITIES: No pedal edema. No calf tenderness. NEUROLOGICAL: Patient is awake, alert and oriented x3. Cranial nerves 2 through 12 are grossly intact. Please refer to medication reconciliation sheet for a list of medications. The impression and plan of care has been dictated by Dana Gray, Nurse Practitioner as directed. Dr. Randolph MD I have performed a history and examination and MDM of this patient, discussed the same with the dictator, and agree with the dictator's assessment and plan as written ,documented as a scribe. Based on total visit time, I have performed more than 50% of the visit. Patient Condition at Discharge: Fair Plan - Discharge Summary New Discharge Prescriptions: New Ipratropium-Albuterol Nebulize [Duoneb 0.5 mg-3 mg/3 ml Soln] 3 ml INHALATION QID #100 each Aspirin 81 mg PO DAILY #30 tab Lactulose 20 gm PO TID PRN #360 ml PRN Reason: Constipation methylPREDNISolone Dose Pack [Medrol Dose Pack] 4 mg PO DIRECTED #21 tab Magnesium Hydroxide [Milk of Magnesia] 2,400 mg PO BID PRN ml PRN Reason: Constipation HYDROcodone/APAP 7.5-325MG [Martin 7.5-325] 1 tab PO Q6HR PRN 3 Days #12 tab PRN Reason: Pain Continue Atorvastatin [Lipitor] 40 mg PO HS Isosorbide Mononitrate ER [Imdur] 30 mg PO DAILY Fluticasone/Umeclidin/Vilanter [Trelegy Ellipta 100-62.5-25] 1 puff INHALATION RT-DAILY Clopidogrel [Plavix] 75 mg PO DAILY Albuterol Sulfate [Albuterol Sulfate Hfa] 2 puff PO RT-Q6H PRN PRN Reason: Shortness Of Breath Discharge Medication List Atorvastatin [Lipitor] 40 mg PO HS 07/20/22 [History] Fluticasone/Umeclidin/Vilanter [Trelegy Ellipta 100-62.5-25] 1 puff INHALATION RT-DAILY 07/20/22 [History] Clopidogrel [Plavix] 75 mg PO DAILY 09/13/22 [History] Isosorbide Mononitrate ER [Imdur] 30 mg PO DAILY 09/13/22 [History] Albuterol Sulfate [Albuterol Sulfate Hfa] 2 puff PO RT-Q6H PRN 11/08/22 [History] Aspirin 81 mg PO DAILY #30 tab 11/12/22 [Rx] HYDROcodone/APAP 7.5-325MG [Martin 7.5-325] 1 tab PO Q6HR PRN 3 Days #12 tab 11/12/22 [Rx] Ipratropium-Albuterol Nebulize [Duoneb 0.5 mg-3 mg/3 ml Soln] 3 ml INHALATION QID #100 each 11/12/22 [Rx] Lactulose 20 gm PO TID PRN #360 ml 11/12/22 [Rx] Magnesium Hydroxide [Milk of Magnesia] 2,400 mg PO BID PRN ml 11/12/22 [Rx] methylPREDNISolone Dose Pack [Medrol Dose Pack] 4 mg PO DIRECTED #21 tab 11/12/22 [Rx] Follow up Appointment(s)/Referral(s): Sai Pa DO [Doctor of Osteopathic Medicine] - 1 Week Viral Downs MD [Primary Care Provider] - 1-2 days Ketan Breaux DO [Doctor of Osteopathic Medicine] - As Needed Deniz Fontaine MD [STAFF PHYSICIAN] - 2 Weeks Patient Instructions/Handouts: COPD (Chronic Obstructive Pulmonary Disease) (DC) Activity/Diet/Wound Care/Special Instructions: Activity Limited until follow-up Follow-up with pulmonary outpatient Dr. Pa who is scheduling the PET scan Continue taking medications as prescribed Continue lactulose 2-3 times daily until having bowel movements and hold if having loose stools Increase fiber in your diet Follow-up with oncology outpatient. They will contact you for scheduling the MRI of the brain [phone] Follow-up with orthopedics outpatient as needed Follow-up primary care provider on discharge Discharge Disposition: HOME SELF-CARE
== END 2022-11-12 17:48 | disposition home or self-care (01) | DRG 191 ==
LOC: EC 22:19 → 5NMEDONC 11-08 04:46 → 4SSUR 11-09 17:40
PROVIDERS: ADMIT Hospitalist; ATTEND Hospitalist
DX: J43.9 Emphysema, unspecified (principal); C34.11 Malignant neoplasm of upper lobe, right bronchus or lung; M84.48XA Pathological fracture, other site, initial encounter for fracture; M48.04 Spinal stenosis, thoracic region; I73.9 Peripheral vascular disease, unspecified; E78.5 Hyperlipidemia, unspecified; I25.10 Atherosclerotic heart disease of native coronary artery without angina pectoris; M50.30 Other cervical disc degeneration, unspecified cervical region; K59.09 Other constipation; M43.12 Spondylolisthesis, cervical region; M40.204 Unspecified kyphosis, thoracic region; R73.03 Prediabetes; Z20.822 Contact with and (suspected) exposure to COVID-19; Z95.820 Peripheral vascular angioplasty status with implants and grafts; Z87.891 Personal history of nicotine dependence; Z95.5 Presence of coronary angioplasty implant and graft; Z79.899 Other long term (current) drug therapy; Z79.82 Long term (current) use of aspirin; Z79.02 Long term (current) use of antithrombotics/antiplatelets; Z79.51 Long term (current) use of inhaled steroids; Z80.9 Family history of malignant neoplasm, unspecified
CPT/HCPCS: 36415; 71046; 72050; 72072; 72128; 74177; 80048; 80053; 83735; 83880; 84484; 85025; 85610; 85730; 87636; 93005; 93306; 94640; 94760; 96374; 96375; 96376; 99285

== ENCOUNTER → 2022-11-21 | Outpatient (CLI) | payer MEDICARE ==
[2022-11-21 16:06] LABS: ALT 31 U/L (8-44); AST 18 U/L (13-35); LDL Cholesterol,Calculated 109.5 mg/dL (0.0-131.0); VLDL Calculation 16.98 mg/dL (5.00-40.00)
== END | disposition home or self-care (01) ==
LOC: LABWHC1 09:55
PROVIDERS: ATTEND Internal Medicine Interventional Cardiology
DX: E78.2 Mixed hyperlipidemia (principal)
CPT/HCPCS: 36415; 80061; 84450; 84460

== ENCOUNTER → 2022-11-23 | Outpatient (CLI) | payer MEDICARE ==
--- NOTE | 2022-11-24 13:43 | MR ---
EXAMINATION TYPE: MR brain wo/w con DATE OF EXAM: 11/23/2022 COMPARISON: None HISTORY: Lung mass, change in mental status. CONTRAST: Performed utilizing 5 mL intravenous Gadavist gadolinium contrast. TECHNIQUE: Multiplanar, multiecho imaging on a 3.0 Arianna magnet is performed through the brain. Stud y is performed within 24 hours of arrival to the hospital. The craniovertebral junction is normal. The pituitary is normal. Diffusion-weighted imaging is performed. No abnormal hyperintensity is present to suggest an acute i ntracranial infarct or acute ischemic change. Periventricular white matter hyperintensities are present. Scattered subcortical white matter changes are present. Findings are nonspecific. Differential diagnosis could include microvascular ischemic c hange. Vasculitis, Lyme disease, chronic white matter ischemic type changes could be considered withi n the differential. There is a large hyperintense area extending through the left temporal lobe into the left trilobar re gion appears to be vasogenic edema. On the postcontrast images there is a ring-enhancing lesion withi n the anterior left temporal lobe. This measures 1.6 AP by 1.4 transverse by 1.5 cm craniocaudal dime nsions. No additional suspicious areas of enhancement are evident. Ventricles and sulci are appropriate for the patient age. No midline shift is evident. Mild local sul garrison effacement is present. Remaining sulci appear normal. IMPRESSIONS: 1. 1.5 cm ring-enhancing lesion left anterior temporal lobe with surrounding vasogenic edema compatib le with metastatic disease.
== END | disposition home or self-care (01) ==
LOC: RADMRIMAIN 10:45
PROVIDERS: ATTEND Internal Medicine Hematology & Oncology
DX: G93.6 Cerebral edema (principal); G93.89 Other specified disorders of brain; R91.8 Other nonspecific abnormal finding of lung field; R41.82 Altered mental status, unspecified
CPT/HCPCS: 70553; A9585